=== PATIENT | male | born 1930 | race Caucasian/White ===

== ENCOUNTER 2016-08-30 07:42 | Inpatient (IN) | payer OTHER, MEDICARE ==
--- NOTE | 2016-08-30 07:58 | PDOC ---
History of Present Illness - General Chief Complaint: Respiratory Distress Stated Complaint: RESPIRATORY DISTRESS Time Seen by Provider: 08/30/16 07:57 - History of Present Illness Initial Comments: 08/30/16 09:33 Chief complaint: Shortness of breath and wheezing History of present illness: The care home noted this morning that the patient was lethargic, short of breath, and wheezing. He was transported to the ER for further evaluation Review of systems: Patient admits shortness of breath. Denies chest pain, abdominal pain, nausea, vomiting, diaphoresis, visual or focal neurologic symptoms. Remainder systems reviewed and found to be negative Past medical history: Coronary artery disease, multiple stents, peripheral vascular disease with angioplasty last week. Procedure was reportedly prolonged and the patient received large amounts of intravenous fluids. Patient has an ALLERGY to his stents, for which she is maintained on prednisone and hydroxyzine. Seizure disorder controlled on Dilantin. Nonhealing ulcerations of the left foot maintained on doxycycline. Social history: Patient resides in a care home, is ambulatory, partial self- care, mild dementia, no tobacco alcohol or nonprescription drugs. His daughter is a nurse practitioner and visits regularly Family history: Reviewed and noncontributory Physical exam: Patient is lethargic but arousable, oriented to person and place , but mildly confused otherwise. He is in considerable respiratory distress, tachypnea and dyspneic, with audible wheezing Afebrile rectally, blood pressure 167/87, pulse 103 regular, respiratory rate 32 and labored, O2 sat, however on nonrebreather is 100% There is a generalized maculopapular erythema of the trunk and extremities, which is due to an ALLERGIC reaction to his stents, according to his daughter. This is unchanged. The patient is not itchy. PERRLA, ENT clear. There is no swelling of the oropharynx lips or face Neck supple without bruit mass or nodes Examination of the chest reveals severe wheezing bilaterally, with rales at both bases. There is no dullness to percussion CV S3, S1 and S2 normal, 2/6 systolic ejection murmur left sternal border without radiation. Both feet are cool and pulses are absent bilaterally. Abdomen mildly distended but soft without masses tenderness organomegaly. Bowel sounds normal Skin as noted above. Otherwise turgor is adequate but mucous membranes are dry Extremities with trace pedal edema bilaterally Neurological generalized weakness but no focal sensory or motor deficits. Cranial nerves appear intact. Gait was not assessed Impression: Exacerbation of CHF, rule out pneumonia, rule out acute coronary event, rule out acute bronchitis Plan: EKG and enzymes, CBC and chemistries, oxygen therapy, diuresis, and observation. Past History - Past Medical History Allergies/Adverse Reactions: Allergies Allergy/AdvReac Type Severity Reaction Status Date / Time Tetanus Vaccines and Toxoid Allergy Intermediate Swelling Verified 08/30/16 08: 39 [Tetanus Vaccines & Toxoid] Penicillins Allergy Unknown Verified 08/30/16 08:39 midazolam HCl [From Versed] AdvReac Severe CONFUSION/A Verified 08/30/16 08:39 GITATION Home Medications: Ambulatory Orders Phenytoin Na Extended [Dilantin -] 300 mg PO HS 07/20/14 Famotidine [Pepcid] 40 mg PO DAILY 10/18/15 Metoprolol Succinate [Toprol Xl] 100 mg PO DAILY 10/18/15 Prednisone 30 mg PO DAILY 12/14/15 Acetaminophen [Tylenol] 650 mg PO QID 08/30/16 Aspirin [ASA -] 81 mg PO DAILY 08/30/16 Atorvastatin Ca [Lipitor] 40 mg PO HS 08/30/16 Clopidogrel Bisulfate [Plavix -] 75 mg PO DAILY 08/30/16 Diphenhydramine HCl [Benadryl -] 25 mg PO Q6H 08/30/16 Doxycycline Hyclate 100 mg PO BID 08/30/16 Hydroxyzine HCl [Atarax -] 25 mg PO TID 08/30/16 Levothyroxine [Synthroid -] 50 mcg PO DAILY 08/30/16 Anemia: No Asthma: No Cancer: No Cardiac Disorders: Yes (02/2015 DC) CVA: Yes (TIA, "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") COPD: No CHF: Yes (HX-NOT RECENTLY) Dementia: Yes (MILD) Diabetes: No GI Disorders: Yes (BLEEDING AFTER COLONOSCOPY) Disorders: No HTN: No Hypercholesterolemia: Yes Liver Disease: No Seizures: Yes (HAS NOT HAD IN 8 YEARS) Thyroid Disease: No - Surgical History Abdominal Surgery: No Appendectomy: No Cardiac Surgery: Yes (STENTS 2014 X 5) Cholecystectomy: Yes Lung Surgery: No Neurologic Surgery: No Orthopedic Surgery: Yes (RT TOTAL HIP REPLACEMENT 2002) - Psycho/Social/Smoking Cessation Hx Anxiety: No Suicidal Ideation: No Smoking History: Former smoker Have you smoked in the past 12 months: No If you are a former smoker, when did you quit?: AT 29 YEARS OF AGE Hx Alcohol Use: No Drug/Substance Use Hx: No Substance Use Type: None Hx Substance Use Treatment: No ED Treatment Course - LABORATORY CBC & Chemistry Diagram: 08/30/16 08:00 08/30/16 08:00 Medical Decision Making - Critical Care Time Total Critical Care Time (minutes): 45 Critical Care Statement: The care of this patient involved high complexity decision making to prevent further life threatening deterioration of the patient 's condition and/or to evalute & treat vital organ system(s) failure or risk of failure. - Medical Decision Making 08/30/16 09:41 EKG shows an accelerated junctional rhythm, ST depressions in the inferior and lateral leads, which are new since prior EKG november 2015. Incomplete right bundle which is old. These changes may be rate related or due to ischemia Chest x-ray: Congestive changes which are new since prior x-ray November 2015. No focal areas of consolidation which might suggest pneumonia Laboratories: Cardiac enzymes within normal limits. Remainder of labs including CBC, INR, chemistries, and urine show the following abnormalities: Elevated glucose 249, P1 21, creatinine 1.3, white blood count 23,000. 08/30/16 09:54 Repeat EKG shows normal sinus rhythm 93/m. Normal axes and intervals. The ST depressions have completely resolved except for possibly 0.5 mm in lead V3, with treatment of the CHF. This along with normal cardiac enzymes suggests that there is probably been no acute coronary event. Continue to monitor and repeat EKG and enzymes. 08/30/16 10:23 White blood cell count 23,000, but differential is normal, and there are no band forms. This is likely due to the respiratory distress. He is afebrile and has no obvious source of infection. The chest x-ray shows no focal infiltrates and the urine is clear. The abdomen is soft and nontender. Lactic acid is elevated. Will repeat 3 hours from initial specimen. Doubt whether this is indicative of sepsis. 08/30/16 10:25 Clinically, the patient is much improved. Wheezing has resolved completely. His respiratory rate is 20 and unlabored. His oxygen saturation is 100% on 3 L/m by nasal cannula. His blood pressure is maintained at approximately 95/70 on nitroglycerin paste topically and after considerable diuresis with Lasix. 08/30/16 11:[address] Naik. Case discussed. Accepted for ICU. Evaluated by MAL ALEXANDER. *DC/Admit/Observation/Transfer Diagnosis at time of Disposition: CHF (congestive heart failure) Qualifiers: Congestive heart failure type: systolic Congestive heart failure chronicity: acute Qualified Code(s): I50.21 - Acute systolic (congestive) heart failure - Discharge Dispostion Condition at time of disposition: Fair Admit: Yes
[2016-08-30] MEDS ORDERED: FUROSEMIDE 40 MG/4 ML INJECTABLE VIAL IVPUSH ONE (08:00)
[2016-08-30] MEDS ORDERED: ALBUTEROL SO4 2.5/IPRATROPIUM 0.5 INH SOL 3 ML VIAL.NEB. NEB ONE ×2 (08:00→08:05)
[2016-08-30] MEDS ORDERED: FUROSEMIDE 40 MG/4 ML INJECTABLE VIAL ONE (08:05)
[2016-08-30 08:28] VITALS: BMI 22.4
[2016-08-30 08:29] LABS: MCH 31.4 pg (25.7-33.7); MCHC 33.4 g/dl (32.0-35.9); PLATELET COUNT 390 K/MM3 (134-434); RDW 14.4 % (11.9-15.9)
[2016-08-30 08:31] LABS: PH,URINE 5.5 (4.5-8); URINE BILIRUBIN Negative (NEGATIVE); URINE BLOOD Negative (NEGATIVE); URINE GLUCOSE (UA) Negative (NEGATIVE); URINE KETONE Negative (NEGATIVE); URINE LEUK ESTERASE Negative (NEGATIVE); URINE NITRITE Negative (NEGATIVE); URINE PROTEIN Trace (NEGATIVE); URINE UROBILINOGEN 0.2 E.U/dl (0.2-1.0)
[2016-08-30 08:38] LABS: INR 1.03 (0.82-1.09); PROTHROMBIN TIME (PATIENT) 11.5 SEC (10.2-13.0); URINE APPEARANCE SL CLOUDY; URINE COLOR YELLOW
[2016-08-30 08:42] LABS: ALBUMIN 3.6 g/dl (3.5-5.0); BILIRUBIN,TOTAL 0.8 mg/dl (0.2-1.0); CALCIUM 8.6 mg/dl (8.4-10.2); CREATININE 1.3 mg/dl (0.6-1.3); TOT PROT 6.1 g/dl (6.4-8.3)
[2016-08-30 09:06] LABS: TROPONIN I (DFP) 0.12 ng/ml (0.03-0.50)
[2016-08-30] MEDS ORDERED: NITROGLYCERIN 2% OINTMENT - 1GM PACKET TD ONE ×2 (09:21→09:34)
[2016-08-30 13:21] LABS: THYROID STIMULATING HORMONE 9.14 uIU/ml (0.358-3.74)
[2016-08-30] MEDS ORDERED: diphenhydrAMINE HCL 25 MG CAPSULE (FP) PO SCH (13:45)
--- NOTE | 2016-08-30 13:58 | CONSULT ---
Addendum entered and electronically signed by Matt Pelletier, ZIGGY 08/30/16 17: 53: Spoke with PCP Dr. Friedman patient ordered a one time dose of Vanco for any potential infection given high lactic acid. Original Note: Consultation: REQUESTING PROVIDER: CONSULT REQUEST: We have been asked to medically evaluate this patient for Acute CHF exacerbation. HISTORY OF PRESENT ILLNESS: 85 year old male with a significant pmhx lip cancer, essential tremor,PVD(s/p angioplasty 08/1016) CAD stents x5 05/2015, seizure disorder (last seizure 2007) , HLD, R Hip replacement [facility]. His daughter is with him and states that he was doing well last night walking with with walker. At [facility] the patient was found to be lethargic, sob, and wheezing. Denies CP, orthopnea, FARLEY,fever, recent travel or n/v. Allergies: PCN, midazolam , Tetanus Vaccine, and stents. PMHx: As above. PSx:As above. FHx: Mom- rheumatic heart dz. Dad- alcoholism Social:former smoker, denies alcohol, rec drugs, lives with daughter REVIEW OF SYSTEMS: CONSTITUTIONAL: generalized weakness Absent: fever, chills, diaphoresis,, malaise, loss of appetite, weight change HEENT: Absent: rhinorrhea, nasal congestion, throat pain, throat swelling, difficulty swallowing, mouth swelling, ear pain, eye pain, visual changes CARDIOVASCULAR: Absent: chest pain, syncope, palpitations, irregular heart rate, lightheadedness , peripheral edema RESPIRATORY: Absent: cough, shortness of breath, dyspnea with exertion, orthopnea, wheezing, stridor, hemoptysis GASTROINTESTINAL: Absent: abdominal pain, abdominal distension, nausea, vomiting, diarrhea, constipation, melena, hematochezia GENITOURINARY: Absent: dysuria, frequency, urgency, hesitancy, hematuria, flank pain, genital pain MUSCULOSKELETAL: Absent: myalgia, arthralgia, joint swelling, back pain, neck pain SKIN: rash Absent: , itching, pallor HEMATOLOGIC/IMMUNOLOGIC: Absent: easy bleeding, easy bruising, lymphadenopathy, frequent infections ENDOCRINE: Absent: unexplained weight gain, unexplained weight loss, heat intolerance, cold intolerance NEUROLOGIC: Absent: headache, focal weakness or paresthesias, dizziness, unsteady gait, seizure, mental status changes, bladder or bowel incontinence PSYCHIATRIC: Absent: anxiety, depression, suicidal or homicidal ideation, hallucinations. PHYSICAL EXAMINATION Vital Signs - 24 hr 08/30/16 12:39 Temperature 97.8 F Pulse Rate 88 Respiratory 24 Rate Blood Pressure 109/66 GENERAL: Awake, alert, in no acute distress. HEAD: Normal with no signs of trauma. tremor of head EYES: Pupils equal, round and reactive to light, extraocular movements intact, sclera anicteric, conjunctiva clear. No lid lag. EARS, NOSE, THROAT: Ears normal, nares patent, oropharynx clear without exudates. Moist mucous membranes. NECK: Normal range of motion, supple without lymphadenopathy, JVD, or masses. LUNGS: slightly diminished breath sounds bilaterally. No wheezes, and fine bibasilar crackles. No accessory muscle use. HEART: Regular rate and rhythm, normal S1 and S2 ,2/6 systolic ejection murmur. no rub or gallop. ABDOMEN: Soft, nontender,mildly distended, normoactive bowel sounds, no guarding , no rebound, no masses. No hepatomegaly or splenomegaly. MUSCULOSKELETAL: No CVA tenderness. UPPER EXTREMITIES: 2+ pulses, warm, well-perfused. No cyanosis. No clubbing. Cap refill <2 seconds. No peripheral edema. LOWER EXTREMITIES: LLE show small ulcer and 5th toe dry gangrene. No calf tenderness. No peripheral edema. NEUROLOGICAL: Awake . Normal speech. gait not observed.. PSYCHIATRIC: Cooperative. Good eye contact. Appropriate mood and affect. SKIN: Macular papular rash on trunk and extremities ASSESSMENT/PLAN: 85 year old male with a significant pmhx lip cancer, essential tremor,PVD(s/p angioplasty 08/1016) CAD stents x5 05/2015, seizure disorder (last seizure 2007) , HLD, R Hip replacement admitted for acute exacerbation of CHF. Neuro: * AAOx3 * Siezure prophylaxis with Dilantin 300mg PO HS- Levels ordered for AM * neuro checks Q4H * Pain control- tylenol prn Pulmonary: * Supplemental O2 via NC PRN * maintain O2 sat. >90% * Prednisone 30mg daily for allergic rxn to coronary stents. * duonebs prn * repeat CXR in AM CV:CHF/CAD * Cardio consult * Echo pending. * daily weights and strict I/O's * trending Cardiac enzymes. * Continue: * metoprolol 100mg PO daily * Nitro bid 0.5inch TD once. * Lasix 40mg IV BID * Lipitor 40mg PO HS * Pavix and ASA Endo: * hypothyroidism- Levothyroxin 75mcg daily * TSH elevated -9.14 ID: * Rapid influenza pending * blood and urine cultures sent. * Continue Doxycyline 100mg PO BID- non healing ulcers of foot. * Repeat Lactic acid in AM F/E/N * Fluid restriction * lytes wnl will repeat labs in AM * Sodium controlled diet. Dispo: We will continue to follow the patient. Thank you for this consultative opportunity. Visit type - Emergency Visit Emergency Visit: Yes ED Registration Date: 08/30/16 Care time: The patient presented to the Emergency Department on the above date and was hospitalized for further evaluation of their emergent condition. - New Patient This patient is new to me today: Yes Date on this admission: 08/30/16 - Critical Care Critical Care patient: Yes Total Critical Care Time (in minutes): 45 Critical Care Statement: The care of this patient involved high complexity decision making to prevent further life threatening deterioration of the patient 's condition and/or to evalute & treat vital organ system(s) failure or risk of failure.
[2016-08-30] MEDS ORDERED: hydrOXYzine HCL 25 MG TABLET (FP) PO SCH (14:00)
[2016-08-30] MEDS ORDERED: hydrOXYzine HCL 25 MG TABLET (FP) PO PRN (14:53)
[2016-08-30] MEDS: predniSONE 10 MG TABLET (UD) PO SCH (15:00)
[2016-08-30] MEDS: FUROSEMIDE 40 MG/4 ML INJECTABLE VIAL IVPUSH SCH (15:04)
[2016-08-30] MEDS: ACETAMINOPHEN 325 MG TABLET (FP) PO PRN ×2 (15:30→21:11)
--- NOTE | 2016-08-30 17:13 | HP ---
Admitting History and Physical - Admission Chief Complaint: SOB, lethargy History of Present Illness: ER HISTORY - History of Present Illness Initial Comments: 08/30/16 09:33 Chief complaint: Shortness of breath and wheezing History of present illness: The correction noted this morning that the patient was lethargic, short of breath, and wheezing. He was transported to the ER for further evaluation Review of systems: Patient admits shortness of breath. Denies chest pain, abdominal pain, nausea, vomiting, diaphoresis, visual or focal neurologic symptoms. Remainder systems reviewed and found to be negative Past medical history: Coronary artery disease, multiple stents, peripheral vascular disease with angioplasty last week. Procedure was reportedly prolonged and the patient received large amounts of intravenous fluids. Patient has an ALLERGY to his stents, for which she is maintained on prednisone and hydroxyzine. Seizure disorder controlled on Dilantin. Nonhealing ulcerations of the left foot maintained on doxycycline. Social history: Patient resides in a correction, is ambulatory, partial self- care, mild dementia, no tobacco alcohol or nonprescription drugs. His daughter is a nurse practitioner and visits regularly Pt seen by me in ICU Spoke to daughter at bedside, pt is new to [facility]- he has been there for about a week for STR. He underwent angiogram and angioplasty to left leg a week ago for PVD and ulcers. She noticed for the past few days that he was tired and weak. But did not notice he was SOB . He was walking with a walker up until yesterday. In the [place] this early AM , he was found to be lethargic and SOB , with O2 sat in the 70's and was initially sento to [facility] ER then transferred over to [facility] ICU Pt is sleepy but he awakens when called and is responsive. 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) Musculoskeletal: Yes: Other (Low back pain) - Smoking History Smoking history: Former smoker Have you smoked in the past 12 months: No If you are a former smoker, when did you quit?: AT 29 YEARS OF AGE - Alcohol/Substance Use Hx Alcohol Use: No - Social History ADL: Independent History of Recent Travel: No Home Medications - Allergies Allergies/Adverse Reactions: Allergies Allergy/AdvReac Type Severity Reaction Status Date / Time Tetanus Vaccines and Toxoid Allergy Intermediate Swelling Verified 08/30/16 08: 39 [Tetanus Vaccines & Toxoid] Penicillins Allergy Unknown Verified 08/30/16 08:39 midazolam HCl [From Versed] AdvReac Severe CONFUSION/A Verified 08/30/16 08:39 GITATION - Home Medications Home Medications: Ambulatory Orders Phenytoin Na Extended [Dilantin -] 300 mg PO HS 07/20/14 Famotidine [Pepcid] 40 mg PO DAILY 10/18/15 Metoprolol Succinate [Toprol Xl] 100 mg PO DAILY 10/18/15 Prednisone 30 mg PO DAILY 12/14/15 Acetaminophen [Tylenol] 650 mg PO QID 08/30/16 Aspirin [ASA -] 81 mg PO DAILY 08/30/16 Atorvastatin Ca [Lipitor] 40 mg PO HS 08/30/16 Clopidogrel Bisulfate [Plavix -] 75 mg PO DAILY 08/30/16 Diphenhydramine HCl [Benadryl -] 25 mg PO Q6H 08/30/16 Doxycycline Hyclate 100 mg PO BID 08/30/16 Hydroxyzine HCl [Atarax -] 25 mg PO TID 08/30/16 Levothyroxine [Synthroid -] 50 mcg PO DAILY 08/30/16 Review of Systems - Review of Systems Constitutional: reports: Lethargy, Weakness. denies: Chills, Fever Physical Examination Vital Signs: Vital Signs Temperature 97.8 F 08/30/16 12:39 Pulse Rate 84 08/30/16 13:53 Respiratory Rate 23 08/30/16 13:53 Blood Pressure 115/72 08/30/16 13:53 O2 Sat by Pulse Oximetry (%) 100 08/30/16 12:20 Constitutional: Yes: No Distress Cardiovascular: Yes: Regular Rate and Rhythm Respiratory: Yes: Diminished Gastrointestinal: Yes: Normal Bowel Sounds, Soft, Abdomen, Obese. No: Distention, Tenderness Extremities: Yes: Other (left foot warm ,tender toes, left 5th toe healed ulcer and left big toe healed ulcer) Edema: No Peripheral Pulses WNL: (dopplerable pulses) Neurological: Yes: Other (drowsy) Labs: Laboratory Last Values WBC 23.0 K/mm3 (4.0-10.0) H D 08/30/16 08:00 RBC 3.56 M/mm3 (4.00-5.60) L 08/30/16 08:00 Hgb 11.2 GM/dl (11.7-16.9) L 08/30/16 08:00 Hct 33.4 % (35.4-49) L 08/30/16 08:00 MCV 94.0 fl (80-96) 08/30/16 08:00 MCHC 33.4 g/dl (32.0-35.9) 08/30/16 08:00 RDW 14.4 % (11.9-15.9) D 08/30/16 08:00 Plt Count 390 K/MM3 (134-434) D 08/30/16 08:00 MPV 8.0 fl (7.5-11.1) 08/30/16 08:00 Neutrophils % 78.0 % (42.8-82.8) 08/30/16 08:00 Lymphocytes % 18.0 % (8-40) D 08/30/16 08:00 Monocytes % 4.0 % (3.8-10.2) 08/30/16 08:00 INR 1.03 (0.82-1.09) D 08/30/16 08:00 Sodium 135 mmol/L (136-145) L 08/30/16 08:00 Potassium 5.0 mmol/L (3.5-5.1) 08/30/16 08:00 Chloride 100 mmol/L (98-107) 08/30/16 08:00 Carbon Dioxide 22 mmol/L (22-28) 08/30/16 08:00 Anion Gap 13 (8-16) 08/30/16 08:00 BUN 21 mg/dl (7-18) H 08/30/16 08:00 Creatinine 1.3 mg/dl (0.6-1.3) D 08/30/16 08:00 Creat Clearance w eGFR 52.34 (>60) 08/30/16 08:00 Random Glucose 249 mg/dl (74-106) H D 08/30/16 08:00 Lactic Acid 5.016 mmol/L (0.4-2.0) H* 08/30/16 11:00 Calcium 8.6 mg/dl (8.4-10.2) 08/30/16 08:00 Total Bilirubin 0.8 mg/dl (0.2-1.0) 08/30/16 08:00 AST 21 U/L (10-42) D 08/30/16 08:00 ALT 17 U/L (10-40) 08/30/16 08:00 Alkaline Phosphatase 75 U/L (32-92) 08/30/16 08:00 Creatine Kinase 75 IU/L (38-174) 08/30/16 08:00 Troponin I 0.12 ng/ml (0.03-0.50) 08/30/16 08:00 B-Natriuretic Peptide 7109.67 pg/ml (5-450) H 08/30/16 11:30 Total Protein 6.1 g/dl (6.4-8.3) L 08/30/16 08:00 Albumin 3.6 g/dl (3.5-5.0) 08/30/16 08:00 TSH 9.14 uIU/ml (0.358-3.74) H 08/30/16 11:30 Free T4 0.80 ng/dl (0.76-1.16) 08/30/16 11:33 Urine Color Yellow 08/30/16 08:00 Urine Appearance Sl cloudy 08/30/16 08:00 Urine pH 5.5 (4.5-8) 08/30/16 08:00 Ur Specific [place] >= 1.030 (1.005-1.025) H 08/30/16 08:00 Urine Protein Trace (NEGATIVE) 08/30/16 08:00 Urine Glucose (UA) Negative (NEGATIVE) 08/30/16 08:00 Urine Ketones Negative (NEGATIVE) 08/30/16 08:00 Urine Blood Negative (NEGATIVE) 08/30/16 08:00 Urine Nitrite Negative (NEGATIVE) 08/30/16 08:00 Urine Bilirubin Negative (NEGATIVE) 08/30/16 08:00 Urine Urobilinogen 0.2 e.u/dl (0.2-1.0) 08/30/16 08:00 Ur Leukocyte Esterase Negative (NEGATIVE) 08/30/16 08:00 Imaging - Results Chest X-ray: Image Reviewed (congested) EKG: Image Reviewed (Sinus) Problem List - Problems (1) CHF (congestive heart failure) Code(s): I50.9 - HEART FAILURE, UNSPECIFIED Qualifiers: Congestive heart failure type: systolic Congestive heart failure chronicity: acute Qualified Code(s): I50.21 - Acute systolic (congestive) heart failure (2) Sepsis Code(s): A41.9 - SEPSIS, UNSPECIFIED ORGANISM (3) PVD (peripheral vascular disease) Code(s): I73.9 - PERIPHERAL VASCULAR DISEASE, UNSPECIFIED Assessment/Plan PLAN -- On Lasix IV -- Echo noted -- Monitor I and O and renal function -- Lactic acid is high-- ID consult, give one dose Vanco -- blood cultures and urine cultures pending-- no clear source seen -- continue with meds -- ICU monitoring -- Cardiology eval -- DVT prophylaxis -- seizure precautions -- check Dilantin level -- time spent 45 min on examination, speaking with staff, resident, and documentation
[2016-08-30] MEDS ORDERED: VANCOMYCIN 1 GRAM (PRE-DOCKED) 250 ML IVPB ONE (17:43)
[2016-08-30] MEDS: DOXYCYCLINE HYCLATE 100 MG CAPSULE PO SCH (19:34)
[2016-08-30] MEDS: LEVOFLOXACIN 500 MG IVPB 100 ML IVPB SCH (20:35)
[2016-08-30] MEDS: ATORVASTATIN CA 40 MG TABLET (FP) PO SCH (21:10)
[2016-08-30] MEDS: MUPIROCIN 2% TOPICAL OINTMENT FOR DECOLONIZATION NS SCH (21:10)
[2016-08-30] MEDS: CHLORHEXIDINE GLUCONATE 4% CLEANSER FOR DECOLONIZATION TP SCH (21:10)
[2016-08-30] MEDS: diphenhydrAMINE HCL 25 MG CAPSULE (FP) PO PRN (21:11)
[2016-08-30] MEDS ORDERED: PHENYTOIN NA EXTENDED 100 MG CAPSULE (FP) PO SCH (22:00)
[2016-08-31] MEDS ORDERED: dilTIAZem HCL 125 MG/25 ML - 25 ML VIAL ONE (03:57)
[2016-08-31] MEDS ORDERED: dilTIAZem HCL 50 MG/10 ML - 10 ML VIAL IVPUSH ONE ×2 (04:01→08:34)
[2016-08-31] MEDS ORDERED: HEPARIN INFUSION - 500 ML IVPB ONE (04:38)
[2016-08-31] MEDS ORDERED: HEPARIN NA (PORCINE) 5,000 UNITS/ML 1ML VIAL IVPUSH PRN (04:38)
[2016-08-31] MEDS ORDERED: HEPARIN INFUSION - 500 ML IVPB SCH (04:45)
[2016-08-31] MEDS: LEVOTHYROXINE NA 50 MCG TABLET (FP) PO SCH (06:08)
[2016-08-31] MEDS: FUROSEMIDE 40 MG/4 ML INJECTABLE VIAL IVPUSH SCH (06:08)
[2016-08-31 06:16] LABS: BASOPHIL 1.2 % (0-2.0); EOSINOPHIL 2.3 % (0-4.5); MCH 30.3 pg (25.7-33.7); MCHC 32.5 g/dl (32.0-35.9); MEAN PLT VOLUME 7.6 fl (7.5-11.1); NEUTROPHILS 63.4 % (42.8-82.8); PLATELET COUNT 296 K/MM3 (134-434); RDW 15.2 % (11.9-15.9); WHITE BLOOD COUNT 14.2 K/mm3 (4.0-10.0)
[2016-08-31 06:55] LABS: ALBUMIN 2.9 g/dl (3.4-5.0); ANION GAP 10 (8-16); CALCIUM 7.9 mg/dL (8.5-10.1); CO2 30 mmol/L (21-32); GLUCOSE,RANDOM 91 mg/dL (74-106)
[2016-08-31 06:58] LABS: ALK PHOS 63 U/L (45-117); BILIRUBIN,TOTAL 0.5 mg/dL (0.2-1.0); CREATININE 1.1 mg/dL (0.7-1.3); SGOT/AST 49 U/L (15-37); SGPT/ALT 20 U/L (12-78); TOT PROT 5.2 g/dl (6.4-8.2)
[2016-08-31 07:14] LABS: TROPONIN I 6.36 ng/ml (0.00-0.05)
--- NOTE | 2016-08-31 08:10 | CON.CARD ---
Consult Consult Specialty:: Cardiology Referred by:: Dr. Chaidez Reason for Consultation:: Cardiac evaluation - History of Present Illness Chief Complaint: Atrial fibrillation with RVR History of Present Illness: Patient is an 85 year old male who resides at assisted now admitted to [facility] with lethargy. He was also found to be in atrial fibrillation with rapid ventricular response and was admitted to ICU. He was transferred from [facility]. His other history is lip cancer, essential tremor, PVD (post BOX SHOOK PATCHER in ), CAD s/p PCI/stentX5 in 2014 and history of seizure disorder. Currently, he appears awake, but appears to have underlying dementia and he is a poor historian. Currently he remains in atrial fibrillation with RVR and troponin was elevated to 6.3. He denies chest pain or shortness of breath. He denies paroxysmal nocturnal dyspnea or orthopnea. Denies nausea or vomiting. Denies headache or lightheadedness. Family has reported history of GI bleed approximately 1 year ago. Cardiology consultation was called for further evaluation. Family History: Mom- rheumatic heart dz. 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) Gastrointestinal: Yes: GI Bleed Musculoskeletal: Yes: Other (Low back pain) - Past Surgical History Past Surgical History: Yes: Stent Additional Surgical History: History of BOX SHOOK PATCHER - Alcohol/Substance Use Hx Alcohol Use: No - Smoking History Smoking history: Former smoker Have you smoked in the past 12 months: No If you are a former smoker, when did you quit?: AT 29 YEARS OF AGE - Social History ADL: Independent History of Recent Travel: No Home Medications - Allergies Allergies/Adverse Reactions: Allergies Allergy/AdvReac Type Severity Reaction Status Date / Time Tetanus Vaccines and Toxoid Allergy Intermediate Swelling Verified 08/30/16 08: 39 [Tetanus Vaccines & Toxoid] Penicillins Allergy Unknown Verified 08/30/16 08:39 midazolam HCl [From Versed] AdvReac Severe CONFUSION/A Verified 08/30/16 08:39 GITATION - Home Medications Home Medications: Ambulatory Orders Phenytoin Na Extended [Dilantin -] 300 mg PO HS 07/20/14 Famotidine [Pepcid] 40 mg PO DAILY 10/18/15 Metoprolol Succinate [Toprol Xl] 100 mg PO DAILY 10/18/15 Prednisone 30 mg PO DAILY 12/14/15 Acetaminophen [Tylenol] 650 mg PO QID 08/30/16 Aspirin [ASA -] 81 mg PO DAILY 08/30/16 Atorvastatin Ca [Lipitor] 40 mg PO HS 08/30/16 Clopidogrel Bisulfate [Plavix -] 75 mg PO DAILY 08/30/16 Diphenhydramine HCl [Benadryl -] 25 mg PO Q6H 08/30/16 Doxycycline Hyclate 100 mg PO BID 08/30/16 Hydroxyzine HCl [Atarax -] 25 mg PO TID 08/30/16 Levothyroxine [Synthroid -] 50 mcg PO DAILY 08/30/16 Review of Systems - Review of Systems Constitutional: reports: Lethargy Cardiovascular: denies: Chest Pain, Shortness of Breath Respiratory: denies: Cough, Hemoptysis, Orthopnea, PND, SOB Gastrointestinal: denies: Abdominal Pain, Diarrhea, Melena, Nausea, Rectal Bleeding, Vomiting Neurological: denies: Dizziness, Headache, Seizure, Syncope Vital Signs: Vital Signs Temperature 97.4 F L 08/31/16 06:00 Pulse Rate 114 H 08/31/16 06:00 Respiratory Rate 20 08/31/16 06:00 Blood Pressure 99/59 08/31/16 06:00 O2 Sat by Pulse Oximetry (%) 97 08/30/16 21:49 Respiratory: Yes: Diminished Gastrointestinal: Yes: Normal Bowel Sounds, Soft. No: Tenderness Cardiovascular: Yes: Pulse Irregular JVD: No Carotid Bruit: No PMI: Non-Displaced Heart Sounds: Yes: S1, S2 Murmur: Yes: Systolic Murmur, Grade 1 Edema: No - Other Data Labs, Other Data: CBC, BMP 08/31/16 05:15 08/31/16 05:15 INR, PTT INR 1.03 (0.82-1.09) D 08/30/16 08:00 Troponin, BNP 08/31/16 05:15 Troponin I 6.36 H* Laboratory Results - last 24 hr 08/30/16 08/30/16 08/30/16 08:00 08:00 08:00 WBC 23.0 H D RBC 3.56 L Hgb 11.2 L Hct 33.4 L MCV 94.0 MCHC 33.4 RDW 14.4 D Plt Count 390 D MPV 8.0 Neutrophils % 78.0 Lymphocytes % 18.0 D Monocytes % 4.0 Eosinophils % Basophils % INR Sodium 135 L Potassium 5.0 Chloride 100 Carbon Dioxide 22 Anion Gap 13 BUN 21 H Creatinine 1.3 D Creat Clearance w eGFR 52.34 Random Glucose 249 H D Lactic Acid Calcium 8.6 Total Bilirubin 0.8 AST 21 D ALT 17 Alkaline Phosphatase 75 Creatine Kinase 75 CK-MB (CK-2) CK-MB (CK-2) Rel Index Troponin I 0.12 B-Natriuretic Peptide Total Protein 6.1 L Albumin 3.6 TSH Free T4 Urine Color Urine Appearance Urine pH Ur Specific [place] Urine Protein Urine Glucose (UA) Urine Ketones Urine Blood Urine Nitrite Urine Bilirubin Urine Urobilinogen Ur Leukocyte Esterase Phenytoin 08/30/16 08/30/16 08/30/16 08:00 08:00 08:00 WBC RBC Hgb Hct MCV MCHC RDW Plt Count MPV Neutrophils % Lymphocytes % Monocytes % Eosinophils % Basophils % INR 1.03 D Sodium Potassium Chloride Carbon Dioxide Anion Gap BUN Creatinine Creat Clearance w eGFR Random Glucose Lactic Acid 5.825 H* Calcium Total Bilirubin AST ALT Alkaline Phosphatase Creatine Kinase CK-MB (CK-2) CK-MB (CK-2) Rel Index Troponin I B-Natriuretic Peptide Total Protein Albumin TSH Free T4 Urine Color Yellow Urine Appearance Sl cloudy Urine pH 5.5 Ur Specific [place] >= 1.030 H Urine Protein Trace Urine Glucose (UA) Negative Urine Ketones Negative Urine Blood Negative Urine Nitrite Negative Urine Bilirubin Negative Urine Urobilinogen 0.2 e.u/dl Ur Leukocyte Esterase Negative Phenytoin 08/30/16 08/30/16 08/30/16 11:00 11:30 11:33 WBC RBC Hgb Hct MCV MCHC RDW Plt Count MPV Neutrophils % Lymphocytes % Monocytes % Eosinophils % Basophils % INR Sodium Potassium Chloride Carbon Dioxide Anion Gap BUN Creatinine Creat Clearance w eGFR Random Glucose Lactic Acid 5.016 H* Calcium Total Bilirubin AST ALT Alkaline Phosphatase Creatine Kinase CK-MB (CK-2) CK-MB (CK-2) Rel Index Troponin I B-Natriuretic Peptide 7109.67 H Total Protein Albumin TSH 9.14 H Free T4 0.80 Urine Color Urine Appearance Urine pH Ur Specific [place] Urine Protein Urine Glucose (UA) Urine Ketones Urine Blood Urine Nitrite Urine Bilirubin Urine Urobilinogen Ur Leukocyte Esterase Phenytoin 08/31/16 08/31/16 08/31/16 05:15 05:15 05:15 WBC 14.2 H D RBC 2.91 L Hgb 8.8 L D Hct 27.1 L MCV 93.0 MCHC 32.5 RDW 15.2 Plt Count 296 MPV 7.6 Neutrophils % 63.4 Lymphocytes % 22.6 D Monocytes % 10.5 H Eosinophils % 2.3 Basophils % 1.2 INR Sodium 138 Potassium 3.8 Chloride 98 Carbon Dioxide 30 Anion Gap 10 BUN 21 H D Creatinine 1.1 D Creat Clearance w eGFR > 60 Random Glucose 91 Lactic Acid Calcium 7.9 L Total Bilirubin 0.5 D AST 49 H D ALT 20 Alkaline Phosphatase 63 D Creatine Kinase 221 CK-MB (CK-2) 13.951 H CK-MB (CK-2) Rel Index Troponin I 6.36 H* B-Natriuretic Peptide Total Protein 5.2 L Albumin 2.9 L TSH Free T4 Urine Color Urine Appearance Urine pH Ur Specific [place] Urine Protein Urine Glucose (UA) Urine Ketones Urine Blood Urine Nitrite Urine Bilirubin Urine Urobilinogen Ur Leukocyte Esterase Phenytoin 08/31/16 08/31/16 08/31/16 05:15 05:15 05:15 WBC RBC Hgb Hct MCV MCHC RDW Plt Count MPV Neutrophils % Lymphocytes % Monocytes % Eosinophils % Basophils % INR Sodium Potassium Chloride Carbon Dioxide Anion Gap BUN Creatinine Creat Clearance w eGFR Random Glucose Lactic Acid 1.571 Calcium Total Bilirubin AST ALT Alkaline Phosphatase Creatine Kinase CK-MB (CK-2) CK-MB (CK-2) Rel Index Cancelled Troponin I B-Natriuretic Peptide Total Protein Albumin TSH Free T4 Urine Color Urine Appearance Urine pH Ur Specific [place] Urine Protein Urine Glucose (UA) Urine Ketones Urine Blood Urine Nitrite Urine Bilirubin Urine Urobilinogen Ur Leukocyte Esterase Phenytoin 8.6 L D Atrial fibrillation with rapid ventricular response Echo: Report Reviewed (Normal LV systolic function, moderate MR and mild TR) Imaging - Results Chest X-ray: Report Reviewed (Mild congestion) EKG: Report Reviewed Problem List - Problems (1) PVD (peripheral vascular disease) Code(s): I73.9 - PERIPHERAL VASCULAR DISEASE, UNSPECIFIED (2) Sepsis Code(s): A41.9 - SEPSIS, UNSPECIFIED ORGANISM Qualifiers: Sepsis type: sepsis due to unspecified organism Qualified Code(s): A41.9 - Sepsis, unspecified organism (3) Atrial fibrillation with rapid ventricular response Code(s): I48.91 - UNSPECIFIED ATRIAL FIBRILLATION (4) CAD (coronary artery disease) Code(s): I25.10 - ATHSCL HEART DISEASE OF [place] CORONARY ARTERY W/O ANG PCTRS Qualifiers: Coronary Disease-Associated Artery/Lesion type: [place] artery [place] vs. transplanted heart: [place] heart Associated angina: without angina Qualified Code(s): I25.10 - Atherosclerotic heart disease of [place] coronary artery without angina pectoris (5) History of percutaneous coronary intervention Code(s): Z98.89 - OTHER SPECIFIED POSTPROCEDURAL STATES * DO NOT USE * (6) PAD (peripheral artery disease) Code(s): I73.9 - PERIPHERAL VASCULAR DISEASE, UNSPECIFIED (7) Dementia Code(s): F03.90 - UNSPECIFIED DEMENTIA WITHOUT BEHAVIORAL DISTURBANCE Qualifiers: Dementia type: unspecified type Dementia behavioral disturbance: without behavioral disturbance Qualified Code(s): F03.90 - Unspecified dementia without behavioral disturbance (8) Lethargy Code(s): R53.83 - OTHER FATIGUE Assessment/Plan 1. Atrial fibrillation with rapid ventricular response, possible new onset ? duration 2. Elevated troponin with history of CAD s/p PCI/stent (2014) - NSTEMI vs demand ischemia due to RVR 3. PAD post BOX SHOOK PATCHER/stent (further history to be obtained) 4. History of HTN 5. Elevated lactic acid and WBC ?etiology ?hypoxia ?sepsis PLAN: 1. Continue Metoprolol for rate control as tolerated. Consider Cardizem IV drip as patient continues to be tachycardic 2. Currently on Heparin drip, but to be used with caution in view of advanced age. Choice of anticoagulation is to be decided 3. Currently on ASA and Plavix due to recent stent 4. Currently on steroids which may contribute to elevated WBC 5. Trend troponin level 6. Empiric antibiotics as per ID with blood culture check Further plans are to follow Zack Agee MD
--- NOTE | 2016-08-31 08:36 | PN ---
Progress Note, Physician Chief Complaint: ID Full note dictated Currently alert NAD Says was SOB at admission but better now No fever but WBC elelvated and lactic acid up. Given vanco and Levoflox empirically ( PCN allergy) - Current Medication List Current Medications: Active Medications Acetaminophen (Tylenol -) 650 mg PO Q6H PRN PRN Reason: FEVER OR PAIN Last Admin: 08/30/16 21:11 Dose: 650 mg Aspirin (Asa -) 81 mg PO DAILY [facility] Atorvastatin Calcium (Lipitor -) 40 mg PO HS [facility] Last Admin: 08/30/16 21:10 Dose: 40 mg Chlorhexidine Gluconate (Hibiclens For Decolonization -) 1 applic TP HS [facility] Last Admin: 08/30/16 21:10 Dose: 1 applic Clopidogrel Bisulfate (Plavix -) 75 mg PO DAILY [facility] Diphenhydramine HCl (Benadryl -) 25 mg PO Q6HPO PRN PRN Reason: FOR ITCHING Last Admin: 08/30/16 21:11 Dose: 25 mg Doxycycline Hyclate (Vibramycin -) 100 mg PO 1000,1800 [facility] Last Admin: 08/30/16 19:34 Dose: 100 mg Furosemide (Lasix Injection -) 40 mg IVPUSH BID@0600,1400 [facility] Last Admin: 08/31/16 06:08 Dose: 40 mg Heparin Sodium (Porcine) (Heparin -) 1,000 unit IVPUSH PRN PRN PRN Reason: Heparin Hydroxyzine HCl (Atarax -) 25 mg PO TID PRN PRN Reason: FOR ITCHING Levofloxacin (Levaquin 500 Mg Premixed Ivpb -) 100 mls @ 100 mls/hr IVPB DAILY [facility] Last Admin: 08/30/16 20:35 Dose: 100 mls/hr Heparin Sodium/Dextrose (Heparin Infusion -) 500 mls @ 20 mls/hr IVPB TITR MOLLY ; 1,000 UNITS/HR PRN Reason: Protocol Last Admin: 08/31/16 04:49 Dose: 20 mls/hr Levothyroxine Sodium (Synthroid -) 75 mcg PO DAILY@0700 [facility] Last Admin: 08/31/16 06:08 Dose: 75 mcg Metoprolol Succinate (Toprol Xl -) 100 mg PO DAILY [facility] Mupirocin (Bactroban Ointment (For Decolonization) -) 1 applic NS BID [facility] Stop: 09/04/16 21:59 Last Admin: 08/30/16 21:10 Dose: 1 applic Phenytoin Sodium (Dilantin -) 300 mg PO HS [facility] Last Admin: 08/30/16 21:10 Dose: 300 mg Prednisone (Deltasone -) 30 mg PO DAILY [facility] Last Admin: 08/30/16 15:00 Dose: 30 mg - Objective Vital Signs: Vital Signs Temperature 97.4 F L 08/31/16 06:00 Pulse Rate 114 H 08/31/16 06:00 Respiratory Rate 20 08/31/16 06:00 Blood Pressure 99/59 08/31/16 06:00 O2 Sat by Pulse Oximetry (%) 97 08/30/16 21:49 Constitutional: Yes: Well Nourished, No Distress Eyes: Yes: WNL, Conjunctiva Clear HENT: Yes: WNL, Atraumatic, Other (Dentures) Cardiovascular: Yes: Tachycardia, Murmur, S1, S2, Other (2/6 systolic murmur apex) Respiratory: Yes: WNL, Regular, CTA Bilaterally. No: Rales, Rhonchi, Wheezes Gastrointestinal: Yes: Soft. No: Tenderness Edema: No Labs: CBC, BMP 08/31/16 05:15 08/31/16 05:15 INR, PTT INR 1.03 (0.82-1.09) D 08/30/16 08:00 Assessment/Plan Microbiology 08/30/16 17:00 Nasopharyngeal Swab Influenza Types A,B Antigen (STAN) - Final 08/30/16 17:00 Nasopharyngeal Swab - Final Laboratory Tests 08/30/16 08/30/16 08/31/16 08:00 08:00 05:15 WBC 23.0 H D 14.2 H D Hgb 11.2 L 8.8 L D Hct 27.1 L Plt Count 390 D 296 INR 1.03 D BUN Lactic Acid CK-MB (CK-2) Troponin I 08/31/16 08/31/16 08/31/16 05:15 05:15 05:15 WBC Hgb Hct Plt Count INR BUN 21 H D Lactic Acid 1.571 CK-MB (CK-2) 13.951 H Troponin I 6.36 H* Assessment Rapid atrial fibrillation Elevated TNI "Sepsis" though WBC could be stress response to ischemia/atrail fibrillation ? steroids Recent catherization left leg Hypoxemia Coronary artery disease with stents Dementia Plan I do not think he has an infection but will treat him 48 hrs pending cultures Scooter and Levoclifton Hwang MD
[2016-08-31] MEDS ORDERED: DILTIAZEM INJECTION 125 MG in DEXTROSE 5%-WATER - 100 ML IVPB SCH (08:45)
--- NOTE | 2016-08-31 09:05 | CONS ---
PHYSICAL MEDICINE REHABILITATION CONSULTATION DATE OF ADMISSION: 08/30/2016 DATE OF CONSULTATION: 08/31/2016 HISTORY OF PRESENT ILLNESS: The patient is an 86-year-old man with past medical history of coronary artery disease status post multiple stents, TIA, mild CVA, mild dementia, as well as a right hip replacement, who was admitted from [facility] with lethargy, shortness of breath, wheezing. Patient is not a good historian and most of the information is taken from his medical record, but he apparently was doing fairly well at [facility] until recently when he developed the above symptoms. On admission, he underwent a chest x-ray which showed congestive changes which were new compared to a chest x-ray taken last year. There was also some degenerative changes noted. Blood work showed elevation in WBCs of over 23,000, hemoglobin 11.2, platelet count 390. On repeat blood work this morning, WBCs had improved to 14.2, but hemoglobin had dropped to 8.8, platelet count 296. INR was normal on admission 1.03. Chemistry did show elevation of his BUN at 21, normal creatinine 1.3, sodium borderline 135, total protein 6.1 slightly low, and albumin 3.6. His BNP was over 7100. Repeat blood work this morning showed a slight drop in his albumin to 2.9 , BUN 21, creatinine 1.1. His troponin has been elevated, initially normal at 0.12, taken today elevated at 6.36. TSH is also elevated at 9.14, but normal free T4. Per the patient, he was living alone in an apartment. He does not seem to remember coming in from a group home facility. He does not know the month. REVIEW OF PAST MEDICAL AND SURGICAL HISTORY: Again mainly taken from his medical record as he is not a reliable historian, coronary artery disease, multiple stents, peripheral vascular disease, with a history of angioplasty recently, mild dementia, CVA, TIA, hyperlipidemia, and chronic low back pain. SOCIAL HISTORY: Again, the patient states he was living alone in an apartment without any stairs. He is a former tobacco-user, but no tobacco in the last 12 months. No alcohol. Again per the medical record. REVIEW OF SYSTEMS: He does feel very cold, but no fever. No lightheadedness, dizziness. No blurry vision or double vision. No nausea, vomiting, difficulty swallowing, difficulty chewing. He does get short of breath at times with exertion. No shortness of breath at rest. No pain. No current complaints of any joint arthralgias, neck pain, back pain. Nor arthritic joints. No numbness/tingling in the upper or lower extremities. He states he has the urge to urinate, but has a Champagne catheter in and did not realize this. PHYSICAL EXAMINATION: General: On examination, he is a friendly elderly man who is again slightly confused, but cooperative, lying in bed. He is in no acute distress. HEENT: He is normocephalic and atraumatic. His extraocular muscles appear full. He has no obvious facial weakness. Speech fluent. No word-finding difficulties. Neck: Supple. Extremities: Without any pitting edema or calf tenderness. Neuromuscular: He is awake and alert, cooperative, but not oriented. Cranial nerves 2-12 appear grossly intact. He has fairly good strength and range of motion throughout his upper and lower extremities without any advanced osteo degenerative changes. Normal sensation to light touch in the upper and lower extremities. Good joint stability, and no skin break down noted. No discoloration in the heels. OVERALL IMPRESSION: 1. Deficits in mobility and activities of daily living. 2. Sepsis, uncertain etiology. 3. Congestive changes noted on vetting chest x-ray, which apparently improved on followup study with elevation in brain natriuretic peptide test consistent with congestive heart failure. 4. Anemia. 5. Recent angioplasty for peripheral vascular disease. 6. Mild dementia, possibly worsening encephalopathy due to sepsis or other condition. 7. Elevated risk for deep venous thrombosis due to immobility. 8. Elevated risk for decubitus ulceration, heel sacrum, due to immobility. 9. History of coronary artery disease, multiple stents. 10. History of cerebrovascular accident and transient ischemic attack. PLANS AND SUGGESTIONS: 1. Physical therapy at the bedside when appropriate. Currently, the patient is moving his upper and lower limbs fairly well, but in light of his multiple medical conditions, would hold evaluation until he is improved clinically. 2. When appropriate, sit up in bed or out of bed to chair. 3. Patient is already anticoagulated on IV heparin. No further DVT prophylaxis needed. 4. Cardiac precautions. 5. Safety fall precautions. 6. Avoid sacral heel pressure. Turn patient q.2 hours. 7. Monitor bowels. 8. Will need discharge back to a group home facility most likely as he lives alone, but may depend on his response to therapy once stable. Thank you for this referral. DONNA HARRY M.D. ANNALISA/[id number] MTDD
[2016-08-31] MEDS ORDERED: dilTIAZem HCL 125 MG/25 ML - 5 ML VIAL ONE (09:31)
[2016-08-31] MEDS: LEVOFLOXACIN 500 MG IVPB 100 ML IVPB SCH (09:38)
[2016-08-31] MEDS ORDERED: ASPIRIN 81 MG CHEWABLE TABLETS PO SCH (10:00)
[2016-08-31] MEDS: predniSONE 10 MG TABLET (UD) PO SCH (10:10)
[2016-08-31] MEDS: METOPROLOL SUCCINATE 100 MG TAB.SR.24H (FP) PO SCH (10:10)
[2016-08-31] MEDS: CLOPIDOGREL BISULFATE 75 MG TABLET (FP) PO SCH (10:11)
[2016-08-31] MEDS ORDERED: PT OWN MED DRAWER 7, Y5N ONE ×2 (10:12→18:32)
[2016-08-31] MEDS: DOXYCYCLINE HYCLATE 100 MG CAPSULE PO SCH ×2 (10:13→18:32)
[2016-08-31 10:14] LABS: TROPONIN I 5.04 ng/ml (0.00-0.05)
--- NOTE | 2016-08-31 10:18 | CONS ---
DATE OF CONSULTATION: DATE OF DICTATION: 08/31/2016 HISTORY OF PRESENT ILLNESS: This is an 86-year-old male who was brought to the intensive care unit with chief complaint of shortness of breath and wheezing. He was apparently noted in the skilled nursing to be lethargic yesterday morning and was noted to be short of breath for which he was transported originally to [place] and then here. On admission, he was noted to be afebrile and to be in a rapid atrial fibrillation. He has a history of prior coronary artery disease for which he has had multiple coronary stents. According to the notes, he has also had a diagnosis of peripheral vascular disease with a recent angioplasty perhaps last week. Interestingly, the admitting ER note documents an allergy to his stents, for which he was maintained on prednisone and hydroxyzine. This might be relevant as the patients white count was noted to be elevated on admission, hence, the reason why I was called. He was empirically treated with antibiotics despite the absence of any obvious focus of infection. He received a dose of vancomycin with continued Levaquin. He has had a nonhealing ulcer of the left foot for which he has been kept on doxycycline. On examination, he was alert, and notes that his shortness of breath has improved, and he denies any chest pain or palpitations. He does complain of pain in his left great toe. PAST MEDICAL HISTORY: Includes peripheral vascular disease, coronary stents, recent angioplasty in the left leg, seizure disorder. ALLERGIES: PENICILLIN? SOCIAL HISTORY: Mild dementia, skilled nursing resident, apparently ambulatory at baseline. He was a smoker, but gave this up many years ago. No history alcohol abuse. FAMILY HISTORY: Reviewed and noncontributory. REVIEW OF SYSTEMS: Respiratory: Shortness of breath, some cough dry. No hemoptysis. Cardiac: No chest pain, palpitations, syncope. Gastrointestinal: No abdominal pain, nausea, vomiting, diarrhea. Genitourinary: No dysuria, hematuria, urinary frequency. Musculoskeletal: History of seizures, but none recently. PHYSICAL EXAMINATION: General: He was an alert male in no acute distress. Vital signs: Temperature was 97.4, pulse 130, respirations 20, blood pressure 100/60, oximetry 97%. HEENT: Revealed upper and lower dentures. Neck: Supple with no adenopathy. Lungs: Clear to percussion auscultation. Heart: S1, S2, irregularly irregular, tachycardic, with a systolic 2/6 murmur noted at the apex. Abdomen: Soft, nontender, without hepatosplenomegaly. Extremities: Without clubbing, cyanosis, or edema. There was a dry eschar on the great toe, which was painful to touch. The white count initially 23,000, now 14.2, hemoglobin 11.2, platelets 390 with a normal differential. INR 1.03. BUN 21, creatinine 1.1. CPK MB fraction 13.9. TNI 6.3. Lactic acid 5.8. Urinalysis negative for leukocyte esterase. Blood and urine cultures pending with blood cultures thus far no growth. Chest x-ray shows no acute infiltrate. ASSESSMENT: An 86-year-old male presents with hypoxemia and lethargy. Clinical findings of rapid atrial fibrillation with elevated TNI consistent with ischemia and [id number] myocardial infarction. This may be the cause of his hypoxemia and lactic acid. There is no obvious focus of infection. That said, he has had a recent procedure done with an angioplasty, and I would be inclined to empirically cover him at least for 24 hours pending blood and urine cultures. The nature of his PENICILLIN allergy is unknown and he cannot elaborate on. We will give him vancomycin and Levaquin as ordered as he is currently stable, and await cultures of blood and urine. The case was discussed with Dr. Zack Agee regarding patients history and current clinical findings. ABHI SPRINGER M.D. MIGUEL [id number]
[2016-08-31] MEDS: VANCOMYCIN 1 GRAM (PRE-DOCKED) 250 ML IVPB SCH ×2 (10:40→22:37)
--- NOTE | 2016-08-31 11:01 | EKG ---
Test Reason : Blood Pressure : / mmHG Vent. Rate : 124 BPM Atrial Rate : 105 BPM P-R Int : 000 ms QRS Dur : 088 ms QT Int : 364 ms P-R-T Axes : 000 019 036 degrees QTc Int : 522 ms ATRIAL FIBRILLATION WITH RAPID VENTRICULAR RESPONSE POSSIBLE LATERAL INFARCT (CITED ON OR BEFORE 30-AUG-2016) MARKED ST ABNORMALITY, POSSIBLE ANTERIOR SUBENDOCARDIAL INJURY ABNORMAL ECG WHEN COMPARED WITH ECG OF 30-AUG-2016 09:50, ATRIAL FIBRILLATION HAS REPLACED SINUS RHYTHM ST MORE DEPRESSED ANTERIOR LEADS Confirmed by MADISON MEADOWS MD ([id number]) on 08/31/2016 11:01:02 AM Referred By: Confirmed By:MADISON MEADOWS MD
[2016-08-31] MEDS ORDERED: morphine CARPU-JECT 2 MG/1 ML DISP.SYRIN ONE (11:12)
[2016-08-31] MEDS ORDERED: morphine CARPU-JECT 2 MG/1 ML DISP.SYRIN IVPUSH ONE (11:14)
[2016-08-31] MEDS: MUPIROCIN 2% TOPICAL OINTMENT FOR DECOLONIZATION NS SCH ×2 (11:18→22:36)
--- NOTE | 2016-08-31 11:54 | PN ---
Progress Note (short form) - Note Progress Note: Subjective Patient seen and examined in ICU. Chart reviewed. Comfortable Had pain in LE before got Morphine and denies pain now Denies cp or SOB Overall feels better On Heparin drip Objective Last Vital Signs Temp Pulse Resp BP Pulse Ox 97.4 F L 125 H 20 104/64 97 08/31/16 06:00 08/31/16 09:38 08/31/16 06:00 08/31/16 09:38 08/30/16 21:49 Labs: CBC, BMP 08/31/16 05:15 08/31/16 05:15 Problem List - Problems (1) CHF (congestive heart failure) Code(s): I50.9 - HEART FAILURE, UNSPECIFIED Qualifiers: Congestive heart failure type: systolic Congestive heart failure chronicity: acute Qualified Code(s): I50.21 - Acute systolic (congestive) heart failure (2) Sepsis Code(s): A41.9 - SEPSIS, UNSPECIFIED ORGANISM (3) PVD (peripheral vascular disease) Code(s): I73.9 - PERIPHERAL VASCULAR DISEASE, UNSPECIFIED Physical Exam Constitutional: Yes: No Distress/comfortable Cardiovascular: Yes: Irregular Respiratory: Yes: Diminished at bases Gastrointestinal: Yes: Normal Bowel Sounds, Soft, Abdomen, Obese. No: Distention, Tenderness Extremities: Yes: Other (left foot warm ,tender toes, left 5th toe healed ulcer and left big toe healed ulcer) Edema: No Peripheral Pulses WNL: (dopplerable pulses) Neurological: Yes: Other (drowsy) Assessment and Plan Continue present care Abx Follow up cultures WBC coming down On Heparin drip Monitor labs Pain controlled PT Increase Dilantin as level is low ECHO reviewed normal left ventricle function Will follow Documentation prepared by Trudy Taylor, acting as a medical engineer for Ivy Gonzalez MD.
--- NOTE | 2016-08-31 14:56 | PN ---
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 Paul Alvarez, sees Dr. Ginny Martínez for cardiology, she agrees with Eliquis 5 bid and Plavix 75 qd, d/c heparin gtt. Attempt to wean off cardizem gtt. Echo shows normal LV fxn without sig valve abnl, d/c Charlie dugganOB to chair.
--- NOTE | 2016-08-31 15:16 | PN ---
Teaching Attending Note Name of Resident: Reynaldo Scott ATTENDING PHYSICIAN STATEMENT I saw and evaluated the patient. I reviewed the resident's note and discussed the case with the resident. I agree with the resident's findings and plan as documented. SUBJECTIVE: Patient seen and examined in the ICU. In brief, 85 M, SNF resident, admitted via the ER due to lethargy and atrial fibrillation with rapid ventricular response. Previous history of lip cancer, essential tremor, PVD (post DIRECTOR OF PULMONARY UNIT in ), CAD s/p PCI/stent X 5 in 2014 and seizure disorder. Noted to have a (+) troponin and CXR consistent with acute CHF. Currently, he is seen in the ICU. He is awake and alert. Intermittent pauses noted on monitor. Cardiology consult has been called. OBJECTIVE: Intake & Output 08/28/16 08/29/16 08/30/16 08/31/16 23:59 23:59 23:59 23:59 Intake Total 670 850 Output Total 2200 750 Balance -1530 100 Weight 195 lb 0.012 oz 186 lb 3 oz Last Vital Signs Temp Pulse Resp BP Pulse Ox 98 F 96 H 24 98/55 97 08/31/16 10:00 08/31/16 14:00 08/31/16 14:00 08/31/16 14:00 08/31/16 09:00 Active Medications Acetaminophen (Tylenol -) 650 mg PO Q6H PRN PRN Reason: FEVER OR PAIN Last Admin: 08/30/16 21:11 Dose: 650 mg Apixaban (Eliquis -) 5 mg PO BID [facility] Atorvastatin Calcium (Lipitor -) 40 mg PO HS [facility] Last Admin: 08/30/16 21:10 Dose: 40 mg Chlorhexidine Gluconate (Hibiclens For Decolonization -) 1 applic TP HS [facility] Last Admin: 08/30/16 21:10 Dose: 1 applic Clopidogrel Bisulfate (Plavix -) 75 mg PO DAILY [facility] Last Admin: 08/31/16 10:11 Dose: 75 mg Diphenhydramine HCl (Benadryl -) 25 mg PO Q6HPO PRN PRN Reason: FOR ITCHING Last Admin: 08/30/16 21:11 Dose: 25 mg Doxycycline Hyclate (Vibramycin -) 100 mg PO 1000,1800 [facility] Last Admin: 08/31/16 10:13 Dose: 100 mg Furosemide (Lasix Injection -) 40 mg IVPUSH DAILY [facility] Hydroxyzine HCl (Atarax -) 25 mg PO TID PRN PRN Reason: FOR ITCHING Levofloxacin (Levaquin 500 Mg Premixed Ivpb -) 100 mls @ 100 mls/hr IVPB DAILY [facility] Last Admin: 08/31/16 09:38 Dose: 100 mls/hr Diltiazem HCl 125 mg/ Dextrose 125 mls @ 5 mls/hr IVPB TITR MOLLY; 5 MG/HR PRN Reason: Protocol Last Admin: 08/31/16 09:38 Dose: 5 mls/hr Vancomycin HCl (Vancomycin (Pre-Docked)) 250 mls @ 250 mls/hr IVPB BID [facility] Last Admin: 08/31/16 10:40 Dose: 250 mls/hr Levothyroxine Sodium (Synthroid -) 75 mcg PO DAILY@0700 [facility] Last Admin: 08/31/16 06:08 Dose: 75 mcg Metoprolol Succinate (Toprol Xl -) 100 mg PO DAILY [facility] Last Admin: 08/31/16 10:10 Dose: 100 mg Mupirocin (Bactroban Ointment (For Decolonization) -) 1 applic NS BID [facility] Stop: 09/04/16 21:59 Last Admin: 08/31/16 11:18 Dose: 1 applic Pantoprazole Sodium (Protonix -) 40 mg PO DAILY [facility] Phenytoin Sodium (Dilantin -) 400 mg PO HS [facility] Prednisone (Deltasone -) 30 mg PO DAILY [facility] Last Admin: 08/31/16 10:10 Dose: 30 mg General: Awake and alert, NAD Respiratory: Yes: Scattered rhonchi Cardiovascular: Yes: Pulse Irregular JVD: No Carotid Bruit: No Heart Sounds: Yes: S1, S2, AFib Murmur: Yes: Systolic Murmur, Grade 1 Gastrointestinal: Yes: Normal Bowel Sounds, Soft. No: Tenderness Edema: No Laboratory Results - last 24 hr 08/31/16 08/31/16 08/31/16 05:15 05:15 05:15 WBC 14.2 H D RBC 2.91 L Hgb 8.8 L D Hct 27.1 L MCV 93.0 MCHC 32.5 RDW 15.2 Plt Count 296 MPV 7.6 Neutrophils % 63.4 Lymphocytes % 22.6 D Monocytes % 10.5 H Eosinophils % 2.3 Basophils % 1.2 PTT (Actin FS) Sodium 138 Potassium 3.8 Chloride 98 Carbon Dioxide 30 Anion Gap 10 BUN 21 H D Creatinine 1.1 D Creat Clearance w eGFR > 60 Random Glucose 91 Lactic Acid Calcium 7.9 L Total Bilirubin 0.5 D AST 49 H D ALT 20 Alkaline Phosphatase 63 D Creatine Kinase 221 Creatine Kinase Index 6.3 H* CK-MB (CK-2) 13.951 H CK-MB (CK-2) Rel Index Troponin I 6.36 H* Total Protein 5.2 L Albumin 2.9 L Phenytoin 08/31/16 08/31/16 08/31/16 05:15 05:15 05:15 WBC RBC Hgb Hct MCV MCHC RDW Plt Count MPV Neutrophils % Lymphocytes % Monocytes % Eosinophils % Basophils % PTT (Actin FS) Sodium Potassium Chloride Carbon Dioxide Anion Gap BUN Creatinine Creat Clearance w eGFR Random Glucose Lactic Acid 1.571 Calcium Total Bilirubin AST ALT Alkaline Phosphatase Creatine Kinase Creatine Kinase Index CK-MB (CK-2) CK-MB (CK-2) Rel Index Cancelled Troponin I Total Protein Albumin Phenytoin 8.6 L D 08/31/16 08/31/16 08/31/16 09:00 09:00 09:30 WBC RBC Hgb Hct MCV MCHC RDW Plt Count MPV Neutrophils % Lymphocytes % Monocytes % Eosinophils % Basophils % PTT (Actin FS) 48.5 H Sodium Potassium Chloride Carbon Dioxide Anion Gap BUN Creatinine Creat Clearance w eGFR Random Glucose Lactic Acid Calcium Total Bilirubin AST ALT Alkaline Phosphatase Creatine Kinase 205 Creatine Kinase Index 5.4 H CK-MB (CK-2) 10.98 H CK-MB (CK-2) Rel Index Cancelled Troponin I 5.04 H* Total Protein Albumin Phenytoin 08/31/16 12:30 WBC RBC Hgb Hct MCV MCHC RDW Plt Count MPV Neutrophils % Lymphocytes % Monocytes % Eosinophils % Basophils % PTT (Actin FS) 63.2 H D Sodium Potassium Chloride Carbon Dioxide Anion Gap BUN Creatinine Creat Clearance w eGFR Random Glucose Lactic Acid Calcium Total Bilirubin AST ALT Alkaline Phosphatase Creatine Kinase Creatine Kinase Index CK-MB (CK-2) CK-MB (CK-2) Rel Index Troponin I Total Protein Albumin Phenytoin ASSESSMENT AND PLAN: - Problems (1) CHF (congestive heart failure) Code(s): I50.9 - HEART FAILURE, UNSPECIFIED Qualifiers: Congestive heart failure type: systolic Congestive heart failure chronicity: acute Qualified Code(s): I50.21 - Acute systolic (congestive) heart failure (2) (?) Sepsis Code(s): A41.9 - SEPSIS, UNSPECIFIED ORGANISM (3) PVD (peripheral vascular disease) Code(s): I73.9 - PERIPHERAL VASCULAR DISEASE, UNSPECIFIED Assessment/Plan Lasix IV Echo noted Monitor I and O ABX per ID Follow blood cultures and urine cultures Cardiology eval noted DVT prophylaxis Seizure precautions Check Dilantin level Dr Hanson CCTime 35"
--- NOTE | 2016-08-31 15:55 | EKG ---
Test Reason : Blood Pressure : / mmHG Vent. Rate : 119 BPM Atrial Rate : 122 BPM P-R Int : 000 ms QRS Dur : 102 ms QT Int : 334 ms P-R-T Axes : 000 011 093 degrees QTc Int : 469 ms POOR DATA QUALITY, INTERPRETATION MAY BE ADVERSELY AFFECTED Likely ST LATERAL INFARCT , AGE UNDETERMINED MARKED ST ABNORMALITY, POSSIBLE ANTERIOR SUBENDOCARDIAL INJURY rvcd NO PREVIOUS ECGS AVAILABLE Confirmed by MD TONE, BUSHRA ([id number]) on 08/31/2016 3:55:21 PM Referred By: GRACIELA SEN Confirmed By:BUSHRA WAYNE MD
--- NOTE | 2016-08-31 15:55 | EKG ---
Test Reason : Blood Pressure : / mmHG Vent. Rate : 093 BPM Atrial Rate : 093 BPM P-R Int : 162 ms QRS Dur : 094 ms QT Int : 400 ms P-R-T Axes : 024 012 045 degrees QTc Int : 497 ms NORMAL SINUS RHYTHM POSSIBLE LATERAL INFARCT (CITED ON OR BEFORE 30-AUG-2016) rvcd WHEN COMPARED WITH ECG OF 30-AUG-2016 07:57, SINUS RHYTHM more evident Confirmed by MD TONE, BUSHRA ([id number]) on 08/31/2016 3:54:50 PM Referred By: GRACIELA SEN Confirmed By:BUSHRA WAYNE MD
[2016-08-31] MEDS: APIXABAN 2.5 MG TABLET PO SCH ×2 (16:10→22:36)
[2016-08-31] MEDS: PANTOPRAZOLE 40 MG TABLET (FP) PO SCH (16:10)
[2016-08-31] MEDS: PHENYTOIN NA EXTENDED 100 MG CAPSULE (FP) PO SCH (22:36)
[2016-08-31] MEDS: ATORVASTATIN CA 40 MG TABLET (FP) PO SCH (22:36)
[2016-08-31] MEDS: CHLORHEXIDINE GLUCONATE 4% CLEANSER FOR DECOLONIZATION TP SCH (23:00)
[2016-09-01 06:32] LABS: ALBUMIN 2.8 g/dl (3.4-5.0); ANION GAP 8 (8-16); BASOPHIL 1.3 % (0-2.0); CO2 29 mmol/L (21-32); EOSINOPHIL 4.7 % (0-4.5); GLUCOSE,RANDOM 86 mg/dL (74-106); MCHC 33.2 g/dl (32.0-35.9); MEAN CELL VOLUME 93.4 fl (80-96); MEAN PLT VOLUME 8.3 fl (7.5-11.1); NEUTROPHILS 55.6 % (42.8-82.8); PLATELET COUNT 297 K/MM3 (134-434); RDW 14.8 % (11.9-15.9); SGOT/AST 32 U/L (15-37); SGPT/ALT 19 U/L (12-78); WHITE BLOOD COUNT 12.1 K/mm3 (4.0-10.0)
[2016-09-01 06:34] LABS: ALK PHOS 66 U/L (45-117); BILIRUBIN,TOTAL 0.5 mg/dL (0.2-1.0); TOT PROT 5.1 g/dl (6.4-8.2)
[2016-09-01] MEDS: LEVOTHYROXINE NA 50 MCG TABLET (FP) PO SCH (07:02)
--- NOTE | 2016-09-01 08:13 | PN ---
Progress Note, Physician Chief Complaint: ID Vancomcyin and Levofloxacin day 2 therapy ( empiric at this point) Confused but in No distress and no complaints - Current Medication List Current Medications: Active Medications Acetaminophen (Tylenol -) 650 mg PO Q6H PRN PRN Reason: FEVER OR PAIN Last Admin: 08/30/16 21:11 Dose: 650 mg Apixaban (Eliquis -) 5 mg PO BID [facility] Last Admin: 08/31/16 22:36 Dose: 5 mg Atorvastatin Calcium (Lipitor -) 40 mg PO HS [facility] Last Admin: 08/31/16 22:36 Dose: 40 mg Chlorhexidine Gluconate (Hibiclens For Decolonization -) 1 applic TP HS [facility] Last Admin: 08/31/16 23:00 Dose: 1 applic Clopidogrel Bisulfate (Plavix -) 75 mg PO DAILY [facility] Last Admin: 08/31/16 10:11 Dose: 75 mg Diphenhydramine HCl (Benadryl -) 25 mg PO Q6HPO PRN PRN Reason: FOR ITCHING Last Admin: 08/30/16 21:11 Dose: 25 mg Doxycycline Hyclate (Vibramycin -) 100 mg PO 1000,1800 [facility] Last Admin: 08/31/16 18:32 Dose: 100 mg Furosemide (Lasix Injection -) 40 mg IVPUSH DAILY [facility] Hydroxyzine HCl (Atarax -) 25 mg PO TID PRN PRN Reason: FOR ITCHING Levofloxacin (Levaquin 500 Mg Premixed Ivpb -) 100 mls @ 100 mls/hr IVPB DAILY [facility] Last Admin: 08/31/16 09:38 Dose: 100 mls/hr Vancomycin HCl (Vancomycin (Pre-Docked)) 250 mls @ 250 mls/hr IVPB BID [facility] Last Admin: 08/31/16 22:37 Dose: 250 mls/hr Levothyroxine Sodium (Synthroid -) 75 mcg PO DAILY@0700 [facility] Last Admin: 09/01/16 07:02 Dose: 75 mcg Metoprolol Succinate (Toprol Xl -) 100 mg PO DAILY [facility] Last Admin: 08/31/16 10:10 Dose: 100 mg Mupirocin (Bactroban Ointment (For Decolonization) -) 1 applic NS BID [facility] Stop: 09/04/16 21:59 Last Admin: 02/10/17 22:36 Dose: 1 applic Pantoprazole Sodium (Protonix -) 40 mg PO DAILY [facility] Last Admin: 08/31/16 16:10 Dose: 40 mg Phenytoin Sodium (Dilantin -) 400 mg PO HS [facility] Last Admin: 08/31/16 22:36 Dose: 400 mg Prednisone (Deltasone -) 30 mg PO DAILY [facility] Last Admin: 08/31/16 10:10 Dose: 30 mg - Objective Vital Signs: Vital Signs Temperature 97.8 F 09/01/16 06:00 Pulse Rate 75 09/01/16 06:00 Respiratory Rate 20 09/01/16 06:00 Blood Pressure 115/57 09/01/16 06:00 O2 Sat by Pulse Oximetry (%) 100 08/31/16 21:00 Constitutional: Yes: Well Nourished, No Distress HENT: Yes: WNL, Atraumatic Neck: Yes: WNL, Supple Cardiovascular: Yes: Pulse Irregular, Gallop, Murmur, S1, S2 Respiratory: Yes: WNL, Regular, CTA Bilaterally, Rales, Other (Rales LLL) Gastrointestinal: Yes: WNL, Normal Bowel Sounds, Soft. No: Tenderness Edema: No Labs: CBC, BMP 09/01/16 05:20 09/01/16 05:20 INR, PTT INR 1.03 (0.82-1.09) D 08/30/16 08:00 Assessment/Plan Microbiology 08/30/16 17:00 Nasopharyngeal Swab Influenza Types A,B Antigen (STAN) - Final 08/30/16 17:00 Nasopharyngeal Swab - Final 08/30/16 08:10 Urine - Urine - Catheterized Urine Culture - Final NO GROWTH OBTAINED 08/30/16 08:00 Blood - Peripheral Venous Blood Culture - Preliminary NO GROWTH OBTAINED AFTER 24 HOURS, INCUBATION TO CONTINUE FOR 4 DAYS. 08/30/16 08:00 Blood - Peripheral Venous Blood Culture - Preliminary NO GROWTH OBTAINED AFTER 24 HOURS, INCUBATION TO CONTINUE FOR 4 DAYS. Laboratory Tests 08/30/16 08/30/16 08/30/16 08:00 08:00 08:00 WBC 23.0 H D Hgb Hct Plt Count BUN Creatinine Creat Clearance w eGFR Lactic Acid 5.825 H* Ur Leukocyte Esterase Negative 08/30/16 08/31/16 09/01/16 11:00 05:15 05:20 WBC 12.1 H Hgb 9.1 L Hct 27.3 L Plt Count 297 BUN Creatinine Creat Clearance w eGFR Lactic Acid 5.016 H* 1.571 Ur Leukocyte Esterase 09/01/16 05:20 WBC Hgb Hct Plt Count BUN 22 H Creatinine 1.0 Creat Clearance w eGFR > 60 Lactic Acid Ur Leukocyte Esterase Assessment Rapid atrial fibrillation Elevated TNI Originally though might have sepsis though no source of infection and cultures no growth PVD Plan OBserve off antibiotics Jaiden WOODARD
--- NOTE | 2016-09-01 08:45 | PN ---
Progress Note (short form) - Note Progress Note: Chief Complaint: Events noted, notes reviewed, denies any chest pain or dyspnea , converted to sinus rhythm History of Present Illness: Seen and examined in the ICU. Events noted, notes reviewed, denies any chest pain or dyspnea, converted to sinus rhythm Echocardiography revealed normal LV systolic function, moderate MR and mild TR Medications: Current Medications Acetaminophen (Tylenol -) 650 mg PO Q6H PRN PRN Reason: FEVER OR PAIN Last Admin: 08/30/16 21:11 Dose: 650 mg Apixaban (Eliquis -) 5 mg PO BID [facility] Last Admin: 08/31/16 22:36 Dose: 5 mg Atorvastatin Calcium (Lipitor -) 40 mg PO [facility] Last Admin: 08/31/16 22:36 Dose: 40 mg Chlorhexidine Gluconate (Hibiclens For Decolonization -) 1 applic TP [facility] Last Admin: 08/31/16 23:00 Dose: 1 applic Clopidogrel Bisulfate (Plavix -) 75 mg PO DAILY [facility] Last Admin: 08/31/16 10:11 Dose: 75 mg Diphenhydramine HCl (Benadryl -) 25 mg PO Q6HPO PRN PRN Reason: FOR ITCHING Last Admin: 08/30/16 21:11 Dose: 25 mg Doxycycline Hyclate (Vibramycin -) 100 mg PO 1000,1800 [facility] Last Admin: 08/31/16 18:32 Dose: 100 mg Furosemide (Lasix Injection -) 40 mg IVPUSH DAILY [facility] Hydroxyzine HCl (Atarax -) 25 mg PO TID PRN PRN Reason: FOR ITCHING Levothyroxine Sodium (Synthroid -) 75 mcg PO DAILY@0700 [facility] Last Admin: 09/01/16 07:02 Dose: 75 mcg Metoprolol Succinate (Toprol Xl -) 100 mg PO DAILY [facility] Last Admin: 08/31/16 10:10 Dose: 100 mg Mupirocin (Bactroban Ointment (For Decolonization) -) 1 applic NS BID [facility] Stop: 09/04/16 21:59 Last Admin: 08/31/16 22:36 Dose: 1 applic Pantoprazole Sodium (Protonix -) 40 mg PO DAILY [facility] Last Admin: 08/31/16 16:10 Dose: 40 mg Phenytoin Sodium (Dilantin -) 400 mg PO [facility] Last Admin: 08/31/16 22:36 Dose: 400 mg Prednisone (Deltasone -) 30 mg PO DAILY [facility] Last Admin: 08/31/16 10:10 Dose: 30 mg Review of Systems - Review of Systems Constitutional: reports: Lethargy Cardiovascular: As noted above Respiratory: denies: Cough or Sputum production Gastrointestinal: denies: Nausea, Vomiting, Diarrhea, Constipation or Abdominal Pain Neurological: denies: Dizziness or Headaches Vital Signs: Last Vital Signs Temp Pulse Resp BP Pulse Ox 97.8 F 76 14 125/70 100 09/01/16 06:00 09/01/16 08:00 09/01/16 08:00 09/01/16 08:00 09/01/16 08:00 Neck: Supple Negative JVD No Bruit Respiratory: Diminished Breath Sounds at the Bases Cardiovascular: S1 S2 Regular Rate and Rhythm Grade 1-2/6 SM Gastrointestinal: Soft Benign Normal Bowel Sounds Ext: No Edema Labs: CBC, BMP 09/01/16 05:20 09/01/16 05:20 Troponin, BNP 08/31/16 09:00 Troponin I 5.04 H* Assessment/Plan ASSESSMENT: 1. Paroxysmal atrial fibrillation with rapid ventricular response currently in sinus rhythm, [id number] score of 4 on NOAC's 2. CAD post PCI/stent ACS/NSTEMI angina pectoris 3. Diastolic LV dysfunction with class II NYHA classification LV failure, resolving 4. HTN 5. PAD post BATCH UNLOADER/stent 6. CKD 7. Anemia PLAN: 1. Continue Toprol XL 2. Consider the addition of ACEI or ARBS unless it is contraindicated 3. Continue Lasix with caution 4. Continue Eliquis and Plavix with caution considering the above noted anemia and clinical presentation 5. To discuss with patient's primary natural science manager initiation of anti-arrhythmic therapy for the above noted Paroxysmal atrial fibrillation 6. Recommend conservative medical management for the above noted presentation, to be discussed with the daughter 7. May transfer to telemetry Eric Powell M.D.
[2016-09-01] MEDS: APIXABAN 2.5 MG TABLET PO SCH ×2 (09:06→21:36)
[2016-09-01] MEDS: predniSONE 10 MG TABLET (UD) PO SCH (09:07)
[2016-09-01] MEDS: METOPROLOL SUCCINATE 100 MG TAB.SR.24H (FP) PO SCH (09:07)
[2016-09-01] MEDS: CLOPIDOGREL BISULFATE 75 MG TABLET (FP) PO SCH (09:07)
[2016-09-01] MEDS: PANTOPRAZOLE 40 MG TABLET (FP) PO SCH (09:07)
[2016-09-01] MEDS ORDERED: PT OWN MED DRAWER 7, Y5N ONE (09:09)
[2016-09-01] MEDS: DOXYCYCLINE HYCLATE 100 MG CAPSULE PO SCH ×2 (09:10→17:53)
[2016-09-01] MEDS: MUPIROCIN 2% TOPICAL OINTMENT FOR DECOLONIZATION NS SCH ×2 (09:11→21:36)
[2016-09-01] MEDS ORDERED: FUROSEMIDE 40 MG/4 ML INJECTABLE VIAL IVPUSH SCH (10:00)
--- NOTE | 2016-09-01 13:50 | PN ---
Progress Note (short form) - Note Progress Note: PULMONARY/CCM Pt seen and examined in the ICU. Denies shortness of breath or chest pain. No palpitations. Last Vital Signs Temp Pulse Resp BP Pulse Ox 98.7 F 76 16 102/59 99 09/01/16 10:59 09/01/16 12:00 09/01/16 12:00 09/01/16 12:00 09/01/16 09:59 Intake & Output 08/29/16 08/30/16 08/31/16 09/01/16 23:59 23:59 23:59 23:59 Intake Total 670 2105 0 Output Total 2200 1750 1050 Balance -1530 355 -1050 Weight 195 lb 0.012 oz 186 lb 3 oz 179 lb 1 oz Gen: NAD in chair Heart: RRR Lung: decreased breath sounds at the bases, right base rales Abd: soft, nontender Ext: no edema CBC, BMP 09/01/16 05:20 09/01/16 05:20 Active Medications Acetaminophen (Tylenol -) 650 mg PO Q6H PRN PRN Reason: FEVER OR PAIN Last Admin: 08/30/16 21:11 Dose: 650 mg Apixaban (Eliquis -) 5 mg PO BID [facility] Last Admin: 09/01/16 09:06 Dose: 5 mg Atorvastatin Calcium (Lipitor -) 40 mg PO HS [facility] Last Admin: 08/31/16 22:36 Dose: 40 mg Chlorhexidine Gluconate (Hibiclens For Decolonization -) 1 applic TP HS [facility] Last Admin: 08/31/16 23:00 Dose: 1 applic Clopidogrel Bisulfate (Plavix -) 75 mg PO DAILY [facility] Last Admin: 09/01/16 09:07 Dose: 75 mg Diphenhydramine HCl (Benadryl -) 25 mg PO Q6HPO PRN PRN Reason: FOR ITCHING Last Admin: 08/30/16 21:11 Dose: 25 mg Doxycycline Hyclate (Vibramycin -) 100 mg PO 1000,1800 [facility] Last Admin: 09/01/16 09:10 Dose: 100 mg Furosemide (Lasix Injection -) 40 mg IVPUSH DAILY [facility] Last Admin: 09/01/16 09:11 Dose: 40 mg Hydroxyzine HCl (Atarax -) 25 mg PO TID PRN PRN Reason: FOR ITCHING Levothyroxine Sodium (Synthroid -) 75 mcg PO DAILY@0700 [facility] Last Admin: 09/01/16 07:02 Dose: 75 mcg Metoprolol Succinate (Toprol Xl -) 100 mg PO DAILY [facility] Last Admin: 09/01/16 09:07 Dose: 100 mg Mupirocin (Bactroban Ointment (For Decolonization) -) 1 applic NS BID [facility] Stop: 09/04/16 21:59 Last Admin: 09/01/16 09:11 Dose: 1 applic Pantoprazole Sodium (Protonix -) 40 mg PO DAILY [facility] Last Admin: 09/01/16 09:07 Dose: 40 mg Phenytoin Sodium (Dilantin -) 400 mg PO HS [facility] Last Admin: 08/31/16 22:36 Dose: 400 mg Prednisone (Deltasone -) 30 mg PO DAILY [facility] Last Admin: 09/01/16 09:07 Dose: 30 mg A/P Paroxysmal Atrial Fibrillation with RVR now in sinus CAD Acute on Chronic LV Diastolic Heart Failure HTN PAD Anemia - continue rate control with toprol - continue anticoagulation - O2 to keep SpO2 >90% - lasix as needed - can monitor on telemetry
--- NOTE | 2016-09-01 14:37 | PN ---
Progress Note (short form) - Note Progress Note: pt seen/ examined in icu chart reviewed all f/u noted pt feels good no complains today denies cp/ sob. no abd pain,. ho pain in legs no headche/ dizziness afebrile off abx wbc trending down Vital Signs Temp 98.5 F 09/01/16 13:50 Pulse 73 09/01/16 13:50 Resp 20 09/01/16 13:50 BP 112/51 09/01/16 13:50 Pulse Ox 99 09/01/16 09:59 Intake & Output 08/31/16 09/01/16 09/01/16 23:59 11:59 23:59 Intake Total 1255 240 360 Output Total 1000 1050 250 Balance 255 -810 110 Weight 179 lb 1 oz Intake: IV 205 0 Heparin Infusion - 500 ml 180 @ 1,000 UNITS/HR 20 mls/ hr IVPB TITR [facility] Rx#: [id number] Cardizem Injection - 125 25 0 mg In D5w - 100 ml @ 5 MG /HR 5 mls/hr IVPB TITR [facility] Rx#:[id number] Oral 1050 240 360 Output: Urine 1000 1050 250 [place] 1000 Void 1050 250 Other: Voiding Method Urinal Urinal Bowel Movement Yes # Bowel Movements 1 Weight Measurement Method Built in [facility] Active Medications Acetaminophen (Tylenol -) 650 mg PO Q6H PRN PRN Reason: FEVER OR PAIN Last Admin: 08/30/16 21:11 Dose: 650 mg Apixaban (Eliquis -) 5 mg PO BID [facility] Last Admin: 09/01/16 09:06 Dose: 5 mg Atorvastatin Calcium (Lipitor -) 40 mg PO HS [facility] Last Admin: 08/31/16 22:36 Dose: 40 mg Chlorhexidine Gluconate (Hibiclens For Decolonization -) 1 applic TP [facility] Last Admin: 08/31/16 23:00 Dose: 1 applic Clopidogrel Bisulfate (Plavix -) 75 mg PO DAILY [facility] Last Admin: 09/01/16 09:07 Dose: 75 mg Diphenhydramine HCl (Benadryl -) 25 mg PO Q6HPO PRN PRN Reason: FOR ITCHING Last Admin: 08/30/16 21:11 Dose: 25 mg Doxycycline Hyclate (Vibramycin -) 100 mg PO 1000,1800 [facility] Last Admin: 09/01/16 09:10 Dose: 100 mg Furosemide (Lasix Injection -) 40 mg IVPUSH DAILY [facility] Last Admin: 09/01/16 09:11 Dose: 40 mg Hydroxyzine HCl (Atarax -) 25 mg PO TID PRN PRN Reason: FOR ITCHING Levothyroxine Sodium (Synthroid -) 75 mcg PO DAILY@0700 [facility] Last Admin: 09/01/16 07:02 Dose: 75 mcg Metoprolol Succinate (Toprol Xl -) 100 mg PO DAILY [facility] Last Admin: 09/01/16 09:07 Dose: 100 mg Mupirocin (Bactroban Ointment (For Decolonization) -) 1 applic NS BID [facility] Stop: 09/04/16 21:59 Last Admin: 09/01/16 09:11 Dose: 1 applic Pantoprazole Sodium (Protonix -) 40 mg PO DAILY [facility] Last Admin: 09/01/16 09:07 Dose: 40 mg Phenytoin Sodium (Dilantin -) 400 mg PO HS [facility] Last Admin: 08/31/16 22:36 Dose: 400 mg Prednisone (Deltasone -) 30 mg PO DAILY [facility] Last Admin: 09/01/16 09:07 Dose: 30 mg CBC, BMP 09/01/16 05:20 09/01/16 05:20 Microbiology 08/30/16 08:00 Blood Culture - Preliminary Blood - Peripheral Venous NO GROWTH OBTAINED AFTER 48 HOURS, INCUBATION TO CONTINUE FOR 3 DAYS. 08/30/16 08:00 Blood Culture - Preliminary Blood - Peripheral Venous NO GROWTH OBTAINED AFTER 48 HOURS, INCUBATION TO CONTINUE FOR 3 DAYS. 08/30/16 08:10 Urine Culture - Final Urine - Urine - Catheterized NO GROWTH OBTAINED Physical Exam Constitutional: Yes: No Distress/comfortable/ alert and awake Cardiovascular: Yes: Irregular Respiratory: Yes: Diminished at bases Gastrointestinal: Yes: Normal Bowel Sounds, Soft, Abdomen, Obese. No: Distention, Tenderness Extremities: Yes: Other (left foot warm ,tender toes, left 5th toe healed ulcer and left big toe healed ulcer) Edema: No Peripheral Pulses WNL: (dopplerable pulses) Neurological: Yes: alert and awake Assessment and Plan better on Eliquis chart reviewed Attempt to taper prednisone oob - chair physical therapy will follow can transfer to tele Problem List - Problems (1) Atrial fibrillation with rapid ventricular response Code(s): I48.91 - UNSPECIFIED ATRIAL FIBRILLATION (2) CAD (coronary artery disease) Code(s): I25.10 - ATHSCL HEART DISEASE OF [place] CORONARY ARTERY W/O ANG PCTRS Qualifiers: Coronary Disease-Associated Artery/Lesion type: [place] artery [place] vs. transplanted heart: [place] heart Associated angina: without angina Qualified Code(s): I25.10 - Atherosclerotic heart disease of [place] coronary artery without angina pectoris (3) CHF (congestive heart failure) Code(s): I50.9 - HEART FAILURE, UNSPECIFIED Qualifiers: Congestive heart failure type: systolic Congestive heart failure chronicity: acute Qualified Code(s): I50.21 - Acute systolic (congestive) heart failure (4) Dementia Code(s): F03.90 - UNSPECIFIED DEMENTIA WITHOUT BEHAVIORAL DISTURBANCE Qualifiers: Dementia type: unspecified type Dementia behavioral disturbance: without behavioral disturbance Qualified Code(s): F03.90 - Unspecified dementia without behavioral disturbance (5) Sepsis Code(s): A41.9 - SEPSIS, UNSPECIFIED ORGANISM Qualifiers: Sepsis type: sepsis due to unspecified organism Qualified Code(s): A41.9 - Sepsis, unspecified organism (6) Leukocytosis Code(s): D72.829 - ELEVATED WHITE BLOOD CELL COUNT, UNSPECIFIED
[2016-09-01] MEDS: diphenhydrAMINE HCL 25 MG CAPSULE (FP) PO PRN (21:36)
[2016-09-01] MEDS: CHLORHEXIDINE GLUCONATE 4% CLEANSER FOR DECOLONIZATION TP SCH (21:36)
[2016-09-01] MEDS: PHENYTOIN NA EXTENDED 100 MG CAPSULE (FP) PO SCH (21:36)
[2016-09-01] MEDS: ATORVASTATIN CA 40 MG TABLET (FP) PO SCH (21:36)
[2016-09-02] MEDS: LEVOTHYROXINE NA 50 MCG TABLET (FP) PO SCH (06:21)
[2016-09-02 07:36] LABS: MCH 31.1 pg (25.7-33.7); MCHC 33.3 g/dl (32.0-35.9); MEAN CELL VOLUME 93.3 fl (80-96); MEAN PLT VOLUME 7.9 fl (7.5-11.1); PLATELET COUNT 284 K/MM3 (134-434); RDW 14.7 % (11.9-15.9); WHITE BLOOD COUNT 12.1 K/mm3 (4.0-10.0)
[2016-09-02 08:02] LABS: ALBUMIN 3.1 g/dl (3.4-5.0); ANION GAP 8 (8-16); CALCIUM 8.2 mg/dL (8.5-10.1); CO2 30 mmol/L (21-32); GLUCOSE,RANDOM 76 mg/dL (74-106)
[2016-09-02 08:05] LABS: ALK PHOS 84 U/L (45-117); BILIRUBIN,TOTAL 0.6 mg/dL (0.2-1.0); PHOSPHOROUS 3.5 mg/dL (2.5-4.9); SGOT/AST 25 U/L (15-37); SGPT/ALT 22 U/L (12-78); TOT PROT 5.4 g/dl (6.4-8.2)
--- NOTE | 2016-09-02 09:42 | PN ---
Progress Note (short form) - Note Progress Note: Chief Complaint: Events noted, notes reviewed, denies any chest pain or dyspnea , sinus rhythm is maintained History of Present Illness: Seen and examined on telemetry. Events noted, notes reviewed, denies any chest pain or dyspnea, sinus rhythm is maintained Echocardiography revealed normal LV systolic function, moderate MR and mild TR Medications: Current Medications Acetaminophen (Tylenol -) 650 mg PO Q6H PRN PRN Reason: FEVER OR PAIN Last Admin: 08/30/16 21:11 Dose: 650 mg Apixaban (Eliquis -) 5 mg PO BID [facility] Last Admin: 09/01/16 21:36 Dose: 5 mg Atorvastatin Calcium (Lipitor -) 40 mg PO HS [facility] Last Admin: 09/01/16 21:36 Dose: 40 mg Clopidogrel Bisulfate (Plavix -) 75 mg PO DAILY [facility] Last Admin: 09/01/16 09:07 Dose: 75 mg Diphenhydramine HCl (Benadryl -) 25 mg PO Q6HPO PRN PRN Reason: FOR ITCHING Last Admin: 09/01/16 21:36 Dose: 25 mg Doxycycline Hyclate (Vibramycin -) 100 mg PO 1000,1800 [facility] Last Admin: 09/01/16 17:53 Dose: 100 mg Furosemide (Lasix Injection -) 40 mg IVPUSH DAILY [facility] Last Admin: 09/01/16 09:11 Dose: 40 mg Hydroxyzine HCl (Atarax -) 25 mg PO TID PRN PRN Reason: FOR ITCHING Levothyroxine Sodium (Synthroid -) 75 mcg PO DAILY@0700 [facility] Last Admin: 09/02/16 06:21 Dose: 75 mcg Metoprolol Succinate (Toprol Xl -) 100 mg PO DAILY [facility] Last Admin: 09/01/16 09:07 Dose: 100 mg Pantoprazole Sodium (Protonix -) 40 mg PO DAILY [facility] Last Admin: 09/01/16 09:07 Dose: 40 mg Phenytoin Sodium (Dilantin -) 400 mg PO HS [facility] Last Admin: 09/01/16 21:36 Dose: 400 mg Prednisone (Deltasone -) 20 mg PO DAILY [facility] Review of Systems - Review of Systems Constitutional: No symptoms reported Cardiovascular: As noted above Respiratory: denies: Cough or Sputum production Gastrointestinal: denies: Nausea, Vomiting, Diarrhea, Constipation or Abdominal Pain Neurological: denies: Dizziness or Headaches Vital Signs: Last Vital Signs Temp Pulse Resp BP Pulse Ox 97.7 F 68 20 110/44 100 09/02/16 06:00 09/02/16 06:00 09/02/16 06:00 09/02/16 06:00 09/01/16 21:00 Neck: Supple Negative JVD No Bruit Respiratory: Diminished Breath Sounds at the Bases Cardiovascular: S1 S2 Regular Rate and Rhythm Grade 1-2/6 SM Gastrointestinal: Soft Benign Normal Bowel Sounds Ext: No Edema Labs: CBC, BMP 09/02/16 05:35 09/02/16 05:35 Assessment/Plan ASSESSMENT: 1. Paroxysmal atrial fibrillation with rapid ventricular response currently in sinus rhythm, [id number] score of 4 on NOAC's (appropriate dosage) 2. CAD post PCI/stent ACS/NSTEMI angina pectoris, plan for conservative medical management 3. Diastolic LV dysfunction with class II NYHA classification LV failure, resolved 4. HTN 5. PAD post PROMOTION PRODUCER/stent 6. CKD 7. Anemia PLAN: 1. Continue Toprol XL 2. Consider the addition of ACEI or ARBS unless it is contraindicated, t initiate with close monitoring of renal function 3. Continue Lasix with caution but initiate PO therapy 4. Continue Eliquis and Plavix with caution considering the above noted anemia and clinical presentation 5. To discuss with patient's primary lavatory attendant initiation of anti-arrhythmic therapy for the above noted Paroxysmal atrial fibrillation (this coming week) 6. As outlined recommend conservative medical management for the above noted presentation, to be discussed with the daughter Eric Powell M.D.
[2016-09-02] MEDS ORDERED: PT OWN MED DRAWER 7, Y5N ONE ×2 (10:17→22:04)
[2016-09-02] MEDS: CLOPIDOGREL BISULFATE 75 MG TABLET (FP) PO SCH (10:23)
[2016-09-02] MEDS: METOPROLOL SUCCINATE 100 MG TAB.SR.24H (FP) PO SCH (10:23)
[2016-09-02] MEDS: FUROSEMIDE 40 MG TABLET (FP) PO SCH (10:23)
[2016-09-02] MEDS: predniSONE 20 MG TABLET (UD) PO SCH (10:23)
[2016-09-02] MEDS: VALSARTAN 40 MG TABLET (FP) PO SCH (10:23)
[2016-09-02] MEDS: APIXABAN 2.5 MG TABLET PO SCH ×2 (10:23→22:09)
[2016-09-02] MEDS: PANTOPRAZOLE 40 MG TABLET (FP) PO SCH (10:23)
[2016-09-02] MEDS: DOXYCYCLINE HYCLATE 100 MG CAPSULE PO SCH ×2 (10:24→17:02)
--- NOTE | 2016-09-02 12:47 | PN ---
Progress Note (short form) - Note Progress Note: pt seen/ examined pt feels well no complains today denies cp/ sob. no abd pain,. Vital Signs Temp 97.6 F 09/02/16 10:00 Pulse 77 09/02/16 10:00 Resp 16 09/02/16 10:00 BP 128/73 09/02/16 10:00 Pulse Ox 100 09/01/16 21:00 Intake & Output 09/01/16 09/02/16 09/02/16 23:59 11:59 23:59 Intake Total 760 250 Output Total 550 300 Balance 210 -50 Intake: Oral 760 250 Output: Urine 550 300 Void 550 300 Other: Voiding Method Urinal Bowel Movement Yes # Bowel Movements 1 Active Medications Acetaminophen (Tylenol -) 650 mg PO Q6H PRN PRN Reason: FEVER OR PAIN Last Admin: 08/30/16 21:11 Dose: 650 mg Apixaban (Eliquis -) 5 mg PO BID [facility] Last Admin: 09/01/16 09:06 Dose: 5 mg Atorvastatin Calcium (Lipitor -) 40 mg PO HS [facility] Last Admin: 08/31/16 22:36 Dose: 40 mg Chlorhexidine Gluconate (Hibiclens For Decolonization -) 1 applic TP [facility] Last Admin: 08/31/16 23:00 Dose: 1 applic Clopidogrel Bisulfate (Plavix -) 75 mg PO DAILY [facility] Last Admin: 09/01/16 09:07 Dose: 75 mg Diphenhydramine HCl (Benadryl -) 25 mg PO Q6HPO PRN PRN Reason: FOR ITCHING Last Admin: 08/30/16 21:11 Dose: 25 mg Doxycycline Hyclate (Vibramycin -) 100 mg PO 1000,1800 [facility] Last Admin: 09/01/16 09:10 Dose: 100 mg Furosemide (Lasix Injection -) 40 mg IVPUSH DAILY [facility] Last Admin: 09/01/16 09:11 Dose: 40 mg Hydroxyzine HCl (Atarax -) 25 mg PO TID PRN PRN Reason: FOR ITCHING Levothyroxine Sodium (Synthroid -) 75 mcg PO DAILY@0700 [facility] Last Admin: 09/01/16 07:02 Dose: 75 mcg Metoprolol Succinate (Toprol Xl -) 100 mg PO DAILY [facility] Last Admin: 09/01/16 09:07 Dose: 100 mg Mupirocin (Bactroban Ointment (For Decolonization) -) 1 applic NS BID [facility] Stop: 09/04/16 21:59 Last Admin: 09/01/16 09:11 Dose: 1 applic Pantoprazole Sodium (Protonix -) 40 mg PO DAILY [facility] Last Admin: 09/01/16 09:07 Dose: 40 mg Phenytoin Sodium (Dilantin -) 400 mg PO HS [facility] Last Admin: 08/31/16 22:36 Dose: 400 mg Prednisone (Deltasone -) 30 mg PO DAILY [facility] Last Admin: 09/01/16 09:07 Dose: 30 mg CBC, BMP 09/01/16 05:20 09/01/16 05:20 Microbiology 08/30/16 08:00 Blood Culture - Preliminary Blood - Peripheral Venous NO GROWTH OBTAINED AFTER 48 HOURS, INCUBATION TO CONTINUE FOR 3 DAYS. 08/30/16 08:00 Blood Culture - Preliminary Blood - Peripheral Venous NO GROWTH OBTAINED AFTER 48 HOURS, INCUBATION TO CONTINUE FOR 3 DAYS. 08/30/16 08:10 Urine Culture - Final Urine - Urine - Catheterized NO GROWTH OBTAINED Physical Exam Constitutional: Yes: No Distress/comfortable/ alert and awake Cardiovascular: Yes: Irregular Respiratory: Yes: Diminished at bases Gastrointestinal: Yes: Normal Bowel Sounds, Soft, Abdomen, Obese. No: Distention, Tenderness Extremities: Yes: Other (left foot warm ,tender toes, left 5th toe healed ulcer and left big toe healed ulcer) Edema: No Peripheral Pulses WNL: (dopplerable pulses) Neurological: Yes: alert and awake Assessment and Plan better/ stable on Eliquis taper prednisone oob - chair physical therapy will follow if stable- anticipate d/c to alf tomorrow Problem List - Problems (1) Atrial fibrillation with rapid ventricular response Code(s): I48.91 - UNSPECIFIED ATRIAL FIBRILLATION (2) CAD (coronary artery disease) Code(s): I25.10 - ATHSCL HEART DISEASE OF [place] CORONARY ARTERY W/O ANG PCTRS Qualifiers: Coronary Disease-Associated Artery/Lesion type: [place] artery [place] vs. transplanted heart: [place] heart Associated angina: without angina Qualified Code(s): I25.10 - Atherosclerotic heart disease of [place] coronary artery without angina pectoris (3) CHF (congestive heart failure) Code(s): I50.9 - HEART FAILURE, UNSPECIFIED Qualifiers: Congestive heart failure type: systolic Congestive heart failure chronicity: acute Qualified Code(s): I50.21 - Acute systolic (congestive) heart failure (4) Dementia Code(s): F03.90 - UNSPECIFIED DEMENTIA WITHOUT BEHAVIORAL DISTURBANCE Qualifiers: Dementia type: unspecified type Dementia behavioral disturbance: without behavioral disturbance Qualified Code(s): F03.90 - Unspecified dementia without behavioral disturbance (5) Sepsis Code(s): A41.9 - SEPSIS, UNSPECIFIED ORGANISM Qualifiers: Sepsis type: sepsis due to unspecified organism Qualified Code(s): A41.9 - Sepsis, unspecified organism (6) Leukocytosis Code(s): D72.829 - ELEVATED WHITE BLOOD CELL COUNT, UNSPECIFIED
[2016-09-02] MEDS: ATORVASTATIN CA 40 MG TABLET (FP) PO SCH (22:09)
[2016-09-02] MEDS: PHENYTOIN NA EXTENDED 100 MG CAPSULE (FP) PO SCH (22:09)
[2016-09-02] MEDS: diphenhydrAMINE HCL 25 MG CAPSULE (FP) PO PRN (22:11)
[2016-09-03 06:22] VITALS: PULSE 70
[2016-09-03] MEDS: LEVOTHYROXINE NA 50 MCG TABLET (FP) PO SCH (06:24)
[2016-09-03 07:17] LABS: BASOPHIL 2.1 % (0-2.0); EOSINOPHIL 7.8 % (0-4.5); MCH 31.1 pg (25.7-33.7); MCHC 33.6 g/dl (32.0-35.9); MEAN CELL VOLUME 92.4 fl (80-96); MEAN PLT VOLUME 7.8 fl (7.5-11.1); NEUTROPHILS 51.5 % (42.8-82.8); PLATELET COUNT 329 K/MM3 (134-434); RDW 14.8 % (11.9-15.9); WHITE BLOOD COUNT 12.7 K/mm3 (4.0-10.0)
[2016-09-03 07:45] LABS: CALCIUM 8.7 mg/dL (8.5-10.1); CREATININE 1.1 mg/dL (0.7-1.3)
[2016-09-03] MEDS: PANTOPRAZOLE 40 MG TABLET (FP) PO SCH (10:22)
[2016-09-03] MEDS: FUROSEMIDE 40 MG TABLET (FP) PO SCH (10:22)
[2016-09-03] MEDS: predniSONE 20 MG TABLET (UD) PO SCH (10:22)
[2016-09-03] MEDS: APIXABAN 2.5 MG TABLET PO SCH (10:23)
[2016-09-03] MEDS: CLOPIDOGREL BISULFATE 75 MG TABLET (FP) PO SCH (10:23)
[2016-09-03] MEDS: METOPROLOL SUCCINATE 100 MG TAB.SR.24H (FP) PO SCH (10:23)
[2016-09-03] MEDS: VALSARTAN 40 MG TABLET (FP) PO SCH (10:24)
[2016-09-03] MEDS ORDERED: PT OWN MED DRAWER 7, Y5N ONE ×2 (10:25→10:39)
--- NOTE | 2016-09-03 10:25 | PN ---
Progress Note, Physician History of Present Illness: Denies chest pain or dyspnea, remains in SR. - Current Medication List Current Medications: Active Medications Acetaminophen (Tylenol -) 650 mg PO Q6H PRN PRN Reason: FEVER OR PAIN Last Admin: 08/30/16 21:11 Dose: 650 mg Apixaban (Eliquis -) 5 mg PO BID [facility] Last Admin: 09/02/16 22:09 Dose: 5 mg Atorvastatin Calcium (Lipitor -) 40 mg PO HS [facility] Last Admin: 09/02/16 22:09 Dose: 40 mg Clopidogrel Bisulfate (Plavix -) 75 mg PO DAILY [facility] Last Admin: 09/02/16 10:23 Dose: 75 mg Diphenhydramine HCl (Benadryl -) 25 mg PO Q6HPO PRN PRN Reason: FOR ITCHING Last Admin: 09/02/16 22:11 Dose: 25 mg Doxycycline Hyclate (Vibramycin -) 100 mg PO 1000,1800 [facility] Last Admin: 09/02/16 17:02 Dose: 100 mg Furosemide (Lasix -) 40 mg PO DAILY [facility] Last Admin: 09/02/16 10:23 Dose: 40 mg Hydroxyzine HCl (Atarax -) 25 mg PO TID PRN PRN Reason: FOR ITCHING Levothyroxine Sodium (Synthroid -) 75 mcg PO DAILY@0700 [facility] Last Admin: 09/03/16 06:24 Dose: 75 mcg Metoprolol Succinate (Toprol Xl -) 100 mg PO DAILY [facility] Last Admin: 09/02/16 10:23 Dose: 100 mg Pantoprazole Sodium (Protonix -) 40 mg PO DAILY [facility] Last Admin: 09/02/16 10:23 Dose: 40 mg Phenytoin Sodium (Dilantin -) 400 mg PO HS [facility] Last Admin: 09/02/16 22:09 Dose: 400 mg Prednisone (Deltasone -) 20 mg PO DAILY [facility] Last Admin: 09/02/16 10:23 Dose: 20 mg Valsartan (Diovan -) 40 mg PO DAILY [facility] Last Admin: 09/02/16 10:23 Dose: 40 mg - Objective Vital Signs: Vital Signs Temperature 96.8 F L 09/03/16 06:00 Pulse Rate 70 09/03/16 06:00 Respiratory Rate 20 09/03/16 06:00 Blood Pressure 112/50 09/03/16 06:00 O2 Sat by Pulse Oximetry (%) 95 09/02/16 22:00 Constitutional: Yes: No Distress, Calm Neck: Yes: Supple Cardiovascular: Yes: Regular Rate and Rhythm Respiratory: Yes: Regular, Diminished Gastrointestinal: Yes: Normal Bowel Sounds, Soft Edema: No Labs: CBC, BMP 09/03/16 05:35 09/03/16 05:35 INR, PTT INR 1.03 (0.82-1.09) D 08/30/16 08:00 - ....Imaging EKG: Report Reviewed (Tele: NSR) Problem List - Problems (1) Atrial fibrillation Code(s): I48.91 - UNSPECIFIED ATRIAL FIBRILLATION Qualifiers: Atrial fibrillation type: paroxysmal Qualified Code(s): I48.0 - Paroxysmal atrial fibrillation (2) CAD (coronary artery disease) Code(s): I25.10 - ATHSCL HEART DISEASE OF [place] CORONARY ARTERY W/O ANG PCTRS Qualifiers: Coronary Disease-Associated Artery/Lesion type: [place] artery [place] vs. transplanted heart: [place] heart Associated angina: without angina Qualified Code(s): I25.10 - Atherosclerotic heart disease of [place] coronary artery without angina pectoris (3) History of percutaneous coronary intervention Code(s): Z98.89 - OTHER SPECIFIED POSTPROCEDURAL STATES * DO NOT USE * (4) PAD (peripheral artery disease) Code(s): I73.9 - PERIPHERAL VASCULAR DISEASE, UNSPECIFIED (5) Demand ischemia Code(s): I24.8 - OTHER FORMS OF ACUTE ISCHEMIC HEART DISEASE Assessment/Plan Echocardiography revealed normal LV systolic function, moderate MR and mild TR 1. Paroxysmal atrial fibrillation with rapid ventricular response currently in sinus rhythm, [id number] score of 4 on NOAC's (appropriate dosage) 2. CAD post PCI/stent, demand ischemia, plan for conservative medical management 3. Diastolic LV dysfunction with class II NYHA classification LV failure, resolved 4. HTN 5. 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 Anemia PLAN: 1. Continue Toprol XL 100 qd 2. Continue Diovan 40 qd with close monitoring of renal function 3. Continue Lasix 40 qd, Lipitor 40 qhs 4. Continue Eliquis 5 bid and Plavix 75 qd with caution considering the above noted anemia and clinical presentation 5. F/u with primary learning coordinator Dr. Shaila Martínez upon d/c, d/c planning
[2016-09-03] MEDS: DOXYCYCLINE HYCLATE 100 MG CAPSULE PO SCH (10:26)
[2016-09-03 11:02] VITALS: BP 132/84; TEMP 98.6
--- NOTE | 2016-09-03 11:48 | DS ---
Physical Examination Vital Signs: Vital Signs Temperature 98.6 F 09/03/16 10:00 Pulse Rate 70 09/03/16 06:00 Respiratory Rate 18 09/03/16 10:00 Blood Pressure 132/84 09/03/16 10:00 O2 Sat by Pulse Oximetry (%) 95 09/02/16 22:00 Labs: CBC, BMP 09/03/16 05:35 09/03/16 05:35 <Ivy Gonzalez - Last Filed: 09/03/16 11:47> Vital Signs: Vital Signs Temperature 98.6 F 09/03/16 10:00 Pulse Rate 70 09/03/16 06:00 Respiratory Rate 18 09/03/16 10:00 Blood Pressure 132/84 09/03/16 10:00 O2 Sat by Pulse Oximetry (%) 95 09/02/16 22:00 Findings/Remarks: Patient comfortable. Siting in chair. No complaints. Feels well. Constitutional: Yes: Well Nourished Eyes: Yes: Conjunctiva Clear Neck: Yes: WNL Cardiovascular: Yes: Regular Rate and Rhythm Respiratory: Yes: CTA Bilaterally Gastrointestinal: Yes: Soft Edema: No Neurological: Yes: Alert Labs: CBC, BMP 09/03/16 05:35 09/03/16 05:35 <Bethany Chris - Last Filed: 09/03/16 11:58> Discharge Summary Reason For Visit: CHF Current Active Problems Atrial fibrillation (Acute) Atrial fibrillation with rapid ventricular response (Acute) CAD (coronary artery disease) (Acute) CHF (congestive heart failure) (Acute) Demand ischemia (Acute) Dementia (Acute) History of percutaneous coronary intervention (Acute) Lethargy (Acute) Leukocytosis (Acute) PAD (peripheral artery disease) (Acute) PVD (peripheral vascular disease) (Acute) - Home Medications Comprehensive Discharge Medication List: Ambulatory Orders Phenytoin Na Extended [Dilantin -] 300 mg PO HS 07/20/14 Famotidine [Pepcid] 40 mg PO DAILY 10/18/15 Metoprolol Succinate [Toprol Xl] 100 mg PO DAILY 10/18/15 Acetaminophen [Tylenol] 650 mg PO QID 08/30/16 Aspirin [ASA -] 81 mg PO DAILY 08/30/16 Atorvastatin Ca [Lipitor] 40 mg PO HS 08/30/16 Clopidogrel Bisulfate [Plavix -] 75 mg PO DAILY 08/30/16 Diphenhydramine HCl [Benadryl Capsule -] 25 mg PO Q6H 08/30/16 Doxycycline Hyclate 100 mg PO BID 08/30/16 Hydroxyzine HCl [Atarax -] 25 mg PO TID 08/30/16 Levothyroxine [Synthroid -] 50 mcg PO DAILY 08/30/16 Apixaban [Eliquis -] 5 mg PO BID tablet 09/03/16 Chlorhexidine Gluconate [Hibiclens For Decolonization -] 1 applic TP HS bottle 09/03/16 Furosemide [Lasix -] 40 mg PO DAILY tablet 09/03/16 Mupirocin Ointment [Bactroban Ointment (For Decolonization) -] 1 applic NS BID applic 09/03/16 Prednisone [Deltasone -] 20 mg PO DAILY tablet 09/03/16 Valsartan [Diovan] 40 mg PO DAILY tablet 09/03/16 <Ivy Gonzalez - Last Filed: 09/03/16 11:47> Current Active Problems Atrial fibrillation (Acute) Atrial fibrillation with rapid ventricular response (Acute) CAD (coronary artery disease) (Acute) CHF (congestive heart failure) (Acute) Demand ischemia (Acute) Dementia (Acute) History of percutaneous coronary intervention (Acute) Lethargy (Acute) Leukocytosis (Acute) PAD (peripheral artery disease) (Acute) PVD (peripheral vascular disease) (Acute) Hospital Course: Patient is a 86 yo M that was admitted from [facility] for SOB as well as lethargy. Patient found to be in CHF exacerbation as well as very high WMC, possible sepsis. Pt treated with IV Lasix and broad spectrum abx. Pt signficantly improved. Cultures are negative. Abx stopped by ID except Doxycycline. 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 Pt now stable for d/c to [facility]. Pt to follow up with his vascular surgeon as advised. Continue Doxycycline as advised by the surgeon. Taper steroids as tolerated. Monitor for CBC and electrolytes grossly. Also discussed with hydro generation supervisor-- Dr. Katz. Discussed with nursing staff and community case manager. Discharge time ---- time spent: 35 mins including documenting, examining and coordinating care. Documentation prepared by Bethany Chris, acting as a medical coding specialist for Ivy Gonzalez MD. - Home Medications Comprehensive Discharge Medication List: Ambulatory Orders Phenytoin Na Extended [Dilantin -] 300 mg PO HS 07/20/14 Famotidine [Pepcid] 40 mg PO DAILY 10/18/15 Metoprolol Succinate [Toprol Xl] 100 mg PO DAILY 10/18/15 Acetaminophen [Tylenol] 650 mg PO QID 08/30/16 Aspirin [ASA -] 81 mg PO DAILY 08/30/16 Atorvastatin Ca [Lipitor] 40 mg PO HS 08/30/16 Clopidogrel Bisulfate [Plavix -] 75 mg PO DAILY 08/30/16 Diphenhydramine HCl [Benadryl Capsule -] 25 mg PO Q6H 08/30/16 Doxycycline Hyclate 100 mg PO BID 08/30/16 Hydroxyzine HCl [Atarax -] 25 mg PO TID 08/30/16 Levothyroxine [Synthroid -] 50 mcg PO DAILY 08/30/16 Apixaban [Eliquis -] 5 mg PO BID tablet 09/03/16 Chlorhexidine Gluconate [Hibiclens For Decolonization -] 1 applic TP HS bottle 09/03/16 Furosemide [Lasix -] 40 mg PO DAILY tablet 09/03/16 Mupirocin Ointment [Bactroban Ointment (For Decolonization) -] 1 applic NS BID applic 09/03/16 Prednisone [Deltasone -] 20 mg PO DAILY tablet 09/03/16 Valsartan [Diovan] 40 mg PO DAILY tablet 09/03/16 <Bethany Chris - Last Filed: 09/03/16 11:58> Condition: Fair
== END 2016-09-03 14:30 | DRG 871 ==
LOC: FER 07:42 → JICU 12:20 → J4W 09-01 22:00
PROVIDERS: ADMIT Internal Medicine; ATTEND Internal Medicine
DX: A41.9 Sepsis, unspecified organism (principal); I50.23 Acute on chronic systolic (congestive) heart failure; G40.802 Other epilepsy, not intractable, without status epilepticus; I13.0 Hypertensive heart and chronic kidney disease with heart failure and stage 1 through stage 4 chronic kidney disease, or unspecified chronic kidney disease; I25.10 Atherosclerotic heart disease of native coronary artery without angina pectoris; E78.5 Hyperlipidemia, unspecified; E03.9 Hypothyroidism, unspecified; F03.90 Unspecified dementia, unspecified severity, without behavioral disturbance, psychotic disturbance, mood disturbance, and anxiety; R09.02 Hypoxemia; M54.5 Low back pain; I73.9 Peripheral vascular disease, unspecified; I48.91 Unspecified atrial fibrillation; D64.9 Anemia, unspecified; I48.0 Paroxysmal atrial fibrillation; N18.9 Chronic kidney disease, unspecified; Z86.73 Personal history of transient ischemic attack (TIA), and cerebral infarction without residual deficits; Z96.641 Presence of right artificial hip joint; Z87.891 Personal history of nicotine dependence; Z95.5 Presence of coronary angioplasty implant and graft
CPT/HCPCS: 36415; 71010-TC; 80048; 80053; 80185; 81003; 82550; 82553; 83605; 83735; 83880; 84100; 84439; 84443; 84484; 84550; 85025; 85027; 85610; 85730; 87040; 87086; 87254; 87804; 93005; 93010; 93306-TC; 97116-GP; 97162-PG; 99285-25; J1644